=== PATIENT | male | born 1980 | race Caucasian/White ===

== ENCOUNTER → 2017-05-12 15:31 | Outpatient (CLI) | payer BC, SELFPAY ==
[2017-05-12 17:48] LABS: Basophils % 0.5 % (0.1-2.0); Eosinophils # 0.3 K/mm3 (0.0-0.4); Eosinophils % 3.3 % (0.1-12.0); Hematocrit 46.7 % (42.0-52.0); Hemoglobin 16.2 g/dL (14.1-18.0); Lymphocytes # 1.4 K/mm3 (0.7-4.5); Lymphocytes % 17.9 K/mm3 (10-50); Mean Corpuscular HGB Conc 34.7 g/dL (31.8-35.4); Mean Corpuscular Hemoglobin 30.1 pg (27.0-31.2); Mean Corpuscular Volume 86.6 fl (80-94); Mean Platelet Volume 8.4 fl (7.4-10.4); Monocytes # 0.6 K/mm3 (0.1-1.0); Monocytes % 7.7 % (1.7-9.3); Neutrophils # 5.4 K/mm3 (1.8-7.8); Neutrophils % 70.5 % (37.0-80.0); Platelet Count 283 K/mm3 (142-424); Red Blood Count 5.39 M/mm3 (4.60-6.20); White Blood Count 7.7 K/mm3 (4.8-10.8)
[2017-05-12 18:18] LABS: Hemoglobin A1C 5.2 % (0.0-7.0)
[2017-05-12 18:46] LABS: Alanine Aminotransferase 78 U/L (12-78); Albumin Level 4.1 gm/dL (3.4-5.0); Albumin/Globulin Ratio 1.2 (1.1-1.8); Alkaline Phosphatase 98 U/L (46-116); Anion Gap 14.1 mEq/L (5-15); Bilirubin,Total 0.5 mg/dL (0.2-1.0); Blood Urea Nitrogen 17 mg/dL (7-18); Calcium 9.6 mg/dL (8.5-10.1); Carbon Dioxide 26 mmol/L (21.0-32.0); Chloride 102 mmol/L (98-107); Chol/HDL Ratio 5.5 (1-3.5); Cholesterol 277 mg/dL (140-200); Creatinine,Serum 1.03 mg/dL (0.70-1.30); Estimated Glomerular Filt Rate 81 ml/min (>60); Free T4 (Free Thyroxine) 0.84 ng/dl (0.76-1.46); GFR (African American) 98 ML/MIN (>60); Globulin 3.5 gm/dl (1.3-3.2); Glucose 101 mg/dL (74-106); HDL Cholesterol 50 mg/dL (27-67); Sodium 138 mmol/L (136-145); Thyroid Stimulating Hormone 2.75 uIU/ml (0.358-3.740); Total Protein,Serum 7.6 gm/dL (6.4-8.2)
[2017-05-12 18:51] LABS: Potassium 4.1 mmoL/L (3.5-5.1); Triglycerides 584 mg/dL (30-200)
[2017-05-12 18:52] LABS: Aspartate Amino Transferase 31 U/L (15-37)
== END ==
PROVIDERS: Visit Provider Nurse Practitioner Family
DX: R53.83 Other fatigue (principal)
CPT/HCPCS: 80053; 80061; 82652; 83036; 84439; 84443; 85025

== ENCOUNTER 2020-03-18 11:06 | Emergency (ER) | payer BC, SELFPAY ==
[2020-03-18 11:10] VITALS: BP 128/94; PULSE 85; RESP 19; TEMP 36.9; O2SAT 98; BMI 38.5
--- NOTE | 2020-03-18 11:30 | HMH.EDUTC ---
[facility] Disposition Clinical Impression: Strep throat Disposition: Home, Self-Care Condition on Discharge: Good Instructions: DI for Strep Throat, Strep Throat, Strep Throat (Alternative Therapy), DI for Sinusitis, Acute Bronchitis Additional Instructions: *Monitor Temp, Over the counter Motrin or Tylenol as directed/as needed Tylenol every 4 hours and Motrin every 6 hours (as long as your family doctor has told you that you can take it) for fever or pain. and straight to ER if unable to lower temp less than 101.0 after medication given *Warm salt water gargles may help to soothe the throat *Throat Lozenges *Warm fluids like tea with honey may help to soothe the throat *Sleep elevated *Humidifier/Vaporizer *If you did not take Penicillin shot or was unable to, start taking antibiotic immediately and make sure that you take it for the FULL length of time although you should start to feel better in 24-48 hours *change toothbrush and toothpaste 24-48 hours after starting to take antibiotics so you do not reinfect yourself Monitor Temp. Tylenol and/or Ibuprofen as needed. ER if fever is no less than 101 despite alternating Tylenol and Ibuprofen * Encourage fluids, water, Gatorade, powerade, pedialyte if infant/toddler/or child *Cold fluids, popsicles and ice cream may feel good on his throat Follow up IMMEDIATELY for new or worsening symptoms or no Noticeable improvement over the next 48-72 hours. 911 for difficulty breathing or swallowing You were tested for today for COVID19 your test result should be back in the next 24-48 hours, you may call to the [facility] to see if your test results are back in the next 48 hours [phone] [facility] hours are 9am-9pm You was given a handout with instructions for Self Quarantine and Self isolation for while you wait on test results and what to do if they are positive If you are positive the Health Dept will be contacting you also Prescriptions: methylPREDNISolone [Medrol 4mg tab] 4 mg PO DIRECTED #21 tab Transmission Status: Pending to [facility] Cefdinir [Omnicef 300mg Capsule] 300 mg PO BID #20 cap Transmission Status: P[facility] to [facility] Referrals: Tom Alvarez MD [Primary Care Provider] - As needed Forms: Work/School Release Time of Disposition: 11:41 Medical Decision Making - James Inquiry Pt receiving controlled substance: No James was queried for this patient: No Vital Signs: 03/18/20 11:10 Temperature 98.4 F Temperature Source Oral Pulse Rate [Right Brachial] 85 Respiratory Rate 19 Blood Pressure [Right Arm] 128/94 H Blood Pressure Mean [Right Arm] 105 Blood Pressure Source [Right Arm] Automatic Cuff Blood Pressure Position [Right Arm] Sitting 02 Sat by Pulse Oximetry 98 Oxygen Delivery Method Room Air Orders (Tests/Meds): ORDERS Category Date Time Status Covid-19 Nasal PCR ([facility]) Routine Lab 03/18/20 11:10 Ordered [facility] UTC HPI - General Stated complaint: sore throat,upper resp,headache,cough Time Seen by Provider: 03/18/20 11:31 Mode of Arrival: Ambulatory Source of Information: Patient Limitations: No Limitations Description of Symptoms (Recalled from Triage Doc. by RN): PATIENT C/O UPPER RESPIRATORY/SINUS SYMPTOMS HEENT Symptoms (Recalled from RN notes): Yes Resp Symptoms (Recalled from RN notes): No Skin Symptoms (Recalled from RN notes): No MS Symptoms (Recalled from RN notes): No Functional Status (Recalled from RN notes): WNL - History of Present Illness Provider Complaint: Patient state that he has been having sore throat, body aches, headache, sinus pain and pressure along with cough States that he use to get sinusitis and bronchitis alot and they would give him medication and it helped States that he feels like that is what he has now also but work wouldnt let him return until he got COVID tested - Related Data Previous Rx's Medication Instructions Recorded Atorvastatin Calcium [Atorvastatin 40 mg PO HS #3
[2020-03-18 11:40] LABS: UTC Strep Screen (Rapid) Positive (Negative)
[2020-03-18 11:41] VITALS: BP 128/94; PULSE 85; RESP 19; TEMP 36.9; O2SAT 98
== END 2020-03-18 11:45 | disposition home or self-care (01) ==
PROVIDERS: Emergency Provider Nurse Practitioner; PCP Emergency Medicine
DX: J02.0 Streptococcal pharyngitis (principal)
CPT/HCPCS: 87880; 99202; G0463; U0003

== ENCOUNTER 2020-10-13 01:46 | Emergency (ER) | payer BC, SELFPAY ==
[2020-10-13 01:47] VITALS: BP 132/94; PULSE 114; RESP 16; TEMP 37.6; O2SAT 95; BMI 39.1
--- NOTE | 2020-10-13 01:56 | XR_ITS ---
PROCEDURE INFORMATION: Exam: XR Chest Exam date and time: 10/13/2020 1:56 AM Age: 40 years old Clinical indication: Chest pressure; Patient HX: Chest pain SOB; Additional info: SOA TECHNIQUE: Imaging protocol: XR of the chest. Views: 2 views. COMPARISON: CR XR CHEST 2V 02/25/2019 4:50 AM FINDINGS: Lungs: No focal consolidation. Pleural spaces: No pleural effusion. No pneumothorax. Heart/Mediastinum: Unremarkable cardiomediastinal silhouette. Bones/joints: No acute osseous findings. IMPRESSION: No focal consolidation.
--- NOTE | 2020-10-13 01:57 | ECG_ITS ---
APPROVED REPORT Exam: Resting ECG HR:115 bpm ECG Measurements Heart Rate 115 AXES ND 176 P 43 QRSd 74 QRS 6 QT 310 T 29 QTc 428 Conclusion Sinus tachycardia Possible Left atrial enlargement Cannot rule out Inferior infarct, age undetermined Abnormal ECG Electronically signed by : Sherif Linares MD 10/14/2020 12:09:10
[2020-10-13 02:01] VITALS: BP 141/89; PULSE 112; RESP 24; O2SAT 90
--- NOTE | 2020-10-13 02:03 | HMH.EDCP ---
ED Disposition Clinical Impression: Pleurisy, SIRS (systemic inflammatory response syndrome) Disposition: Home, Self-Care Condition on Discharge: Good Instructions: DI for Atypical Chest Pain, DI for Pleurisy Additional Instructions: use meds and see pcp and recheck ed if increased sx Prescriptions: predniSONE [Prednisone 20mg Tab] 20 mg PO BID #10 tab Transmission Status: [facility] to [facility] Azithromycin [Zithromax 250mg tab] 250 mg PO DIRECTED #6 tab Transmission Status: Pending to [facility] Referrals: Cait Shukal [Primary Care Provider] - - Critical Care Critical Care Time: No Attestation: On , the high probability of a clinically significant, sudden or life threatening deterioration of the following system(s) required my full and direct attention, intervention and personal management. The time I documented below is in addition to time spent performing reported procedures but includes the following listed in this critical care notation. Medical Decision Making - Medical Records Medical records reviewed: Yes: I reviewed the patient's medical records. - James Inquiry Pt receiving controlled substance: No Vital Signs: 10/13/20 01:47 10/13/20 02:01 10/13/20 02:30 Temperature 99.6 F Temperature Source Oral Pulse Rate 112 H 113 H Pulse Rate [Left Radial] 114 H Respiratory Rate 16 24 27 H Blood Pressure 141/89 H 135/84 Blood Pressure [Right Arm] 132/94 H Blood Pressure Mean [Right Arm] 106 Blood Pressure Source [Right Arm] Automatic Cuff Blood Pressure Position [Right Arm] Supine 02 Sat by Pulse Oximetry 95 90 L 93 L Oxygen Delivery Method Room Air Room Air Room Air - Lab Data Lab results reviewed: Yes: I reviewed the patient's lab results. Lab Results 10/13/20 01:48: WBC 16.7 H, RBC 5.43, Hgb 16.1, Hct 46.9, MCV 86.5, MCH 29.6, MCHC 34.3, RDW 13.2, Plt Count 362, MPV 8.7, Neut % (Auto) 85.5 H, Lymph % (Auto) 8.9 L, [place] % (Auto) 4.8, Eos % (Auto) 0.5, Baso % (Auto) 0.4, Neut # (Auto) 14.3 H, Lymph # (Auto) 1.5, [place] # (Auto) 0.8, Eos # (Auto) 0.1, Baso # (Auto) 0.1, Total Counted 100, Neutrophils % (Manual) 83 H, Band Neutrophils % 10.0 H, Lymphocytes % (Manual) 5 L, Monocytes % (Manual) 2, Platelet Estimate Normal, RBC Morphology Normal, ESR 14 10/13/20 01:48: Sodium 135 L, Potassium 4.3, Chloride 101, Carbon Dioxide 22, Anion Gap 16.3 H, BUN 15, Creatinine 0.90, Estimated Creat Clear 209, Estimated GFR 93, Est GFR ( Amer) 112, Glucose 159 H, Calcium 9.5, Total Bilirubin 0.9, Direct Bilirubin 0.5 H, Conjugated Bilirubin 0.0, Indirect Bilirubin 0.4, Unconjugated Bilirubin 0.4, AST 37, ALT 50, Alkaline Phosphatase 111, Troponin I < 0.01, C-Reactive Protein 14.5 H, Total Protein 8.0, Albumin 4.6, Procalcitonin 0.087, Thyroxine (T4) 8.1 10/13/20 01:48: SARS-CoV-2 (PCR) Not detected, Influenza A Untype (PCR) Not detected, Influenza Type B (PCR) Not detected Result diagrams: 10/13/20 01:48 10/13/20 01:48 Orders (Tests/Meds): ED MEDICATIONS Generic Name Dose Route Start Last Admin Trade Name Freq PRN Reason Stop Dose Admin Sodium Chloride 1,000 mls @ 999 mls/hr 10/13/20 02:00 10/13/20 02:53 Sod Chlor 0.9% 1000ml Bag IV 10/13/20 03:00 Not Given .Q1H1M DELICIA Lactated Ringer's 1,000 mls @ 999 mls/hr 10/13/20 02:00 10/13/20 01:59 Lactated Ringer's 1000 Ml Bag IV 10/13/20 03:00 999 mls/hr .Q1H1M DELICIA Administration Discontinued Medications Generic Name Dose Route Start Last Admin Trade Name Freq PRN Reason Stop Dose Admin Aspirin 324 mg 10/13/20 01:56 10/13/20 01:57 Aspirin 81mg Chewable Tablet PO 10/13/20 01:57 324 mg ONCE ONE Administration Ketorolac Tromethamine 30 mg 10/13/20 02:03 10/13/20 02:04 Ketorolac 30mg/Ml Vial IV 10/13/20 02:04 30 mg ONCE ONE Administration Methylprednisolone Sodium Succinate 125 mg 10/13/20 02:48 10/13/20 03:07 Methylprednisolone Sod Succ 125mg Vial IV 09/16
[2020-10-13 02:08] LABS: Coronavirus 19, PCR Not Detected (NotDetected); Influenza A, PCR Not Detected (NotDetected); Influenza B, PCR Not Detected (NotDetected)
[2020-10-13 02:13] LABS: Basophils # 0.1 K/mm3 (0-0.2); Basophils % 0.4 % (0.1-2.0); Eosinophils # 0.1 K/mm3 (0.0-0.4); Eosinophils % 0.5 % (0.1-12.0); Hematocrit 46.9 % (42.0-52.0); Hemoglobin 16.1 g/dL (14.1-18.0); Lymphocytes # 1.5 K/mm3 (0.7-4.5); Lymphocytes % 8.9 % (10-50); Mean Corpuscular HGB Conc 34.3 g/dL (31.8-35.4); Mean Corpuscular Hemoglobin 29.6 pg (27.0-31.2); Mean Corpuscular Volume 86.5 fl (80-94); Mean Platelet Volume 8.7 fl (7.4-10.4); Monocytes # 0.8 K/mm3 (0.1-1.0); Monocytes % 4.8 % (1.7-9.3); Neutrophils # 14.3 K/mm3 (1.8-7.8); Neutrophils % 85.5 % (37.0-80.0); Platelet Count 362 K/mm3 (142-424); Red Blood Count 5.43 M/mm3 (4.60-6.20); Red Cell Distribution Width 13.2 % (11.5-17.5); White Blood Count 16.7 K/mm3 (4.8-10.8)
[2020-10-13 02:18] LABS: MANUAL DIFFERENTIAL MANUAL DIFFERENTIAL (MANUAL DIFF)
[2020-10-13 02:27] LABS: Alanine Aminotransferase 50 U/L (12-78); Albumin Level 4.6 g/dl (3.5-5.0); Alkaline Phosphatase 111 U/L (38-126); Anion Gap 16.3 mEq/L (5-15); Aspartate Amino Transferase 37 U/L (17-59); Bilirubin,Direct 0.5 mg/dl (0.0-0.4); Bilirubin,Indirect 0.4 mg/dL (0.0-0.9); Bilirubin,Total 0.9 mg/dl (0.2-1.3); Bilirubin,Unconjugated 0.4 mg/dL (0.0-1.1); Blood Urea Nitrogen 15 mg/dl (9-20); Calcium 9.5 mg/dl (8.4-10.2); Carbon Dioxide 22 mmol/L (22.0-30.0); Chloride 101 mmol/L (98-107); Creatinine Clearance Estimated 209 mL/min (50-200); Estimated Glomerular Filt Rate 93 ml/min (>60); GFR (African American) 112 ML/MIN (>60); Glucose 159 mg/dl (74-100); Lymphocytes % 5 % (10-50); Monocytes % 2 % (2-9); Neutrophils % 83 % (42-76); Platelet Estimate Normal; Potassium 4.3 mmoL/L (3.5-5.1); RBC Morphology Normal; Sodium 135 mmol/L (136-145); Total Cells Counted 100
[2020-10-13 02:30] VITALS: BP 135/84; PULSE 113; RESP 27; O2SAT 93
[2020-10-13 02:33] LABS: C-Reactive Protein 14.5 mg/L (0-4)
[2020-10-13 02:39] LABS: Erythrocyte Sedimentation Rate 14 mm/hr (0-15)
[2020-10-13 02:45] LABS: Troponin I < 0.01 ng/ml (0.00-0.034)
[2020-10-13 02:48] LABS: Procalcitonin 0.087 ng/mL (0.0-2.0); T4 (Thyroxine) 8.1 ug/dl (5.53-11.0)
[2020-10-13 03:00] VITALS: BP 141/92; PULSE 109; RESP 21; O2SAT 93
[2020-10-13 03:02] LABS: Thyroid Stimulating Hormone 1.19 uIU/mL (0.465-4.68)
[2020-10-13 03:30] VITALS: BP 124/65; PULSE 108; RESP 20; O2SAT 94
[2020-10-13 03:32] VITALS: BP 124/65; PULSE 107; RESP 19; TEMP 37.2; O2SAT 95
== END 2020-10-13 03:39 | disposition home or self-care (01) ==
PROVIDERS: Emergency Provider Emergency Medicine; PCP Family Medicine
DX: R09.1 Pleurisy (principal); Z20.822 Contact with and (suspected) exposure to COVID-19; R65.10 Systemic inflammatory response syndrome (SIRS) of non-infectious origin without acute organ dysfunction
CPT/HCPCS: 71046; 80048; 80076; 84145; 84436; 84443; 84484; 85007; 85025; 85651; 86140; 93005; 96365; 96375; 99283; U0003

== ENCOUNTER 2020-10-24 13:45 | Inpatient (IN) | payer BC, SELFPAY ==
[2020-10-24] VITALS (13 sets, daily range): BP systolic 107–188; BP diastolic 63–98; PULSE 110–127; RESP 16–27; TEMP 37.3–38.3; O2SAT 87–93; BMI 39.1; BMI 38.9
--- NOTE | 2020-10-24 14:10 | XR_ITS ---
PROCEDURE: XR CHEST PORTABLE CLINICAL HISTORY: SOA, covid +, cough, fever COMPARISON: CR CXR2 CHEST-AP VIEW ONLY from 01/21/2013 CR XR CHEST 2V from 02/25/2019 CR XR CHEST 2V from 10/13/2020 FINDINGS: There is mild cardiomegaly without failure. Multifocal bilateral infiltrates are present with some sparing of the apices consistent with Covid19 pneumonia. No effusions. No evidence of pneumothorax. No acute bony abnormalities. IMPRESSION: Moderate to severe bilateral multi focal infiltrates consistent with Covid19 pneumonia Dictated by: Jose Alberto Moran MD 10/24/2020 14:36 Jose Alberto Moran MD in [place] 10/24/2020 14:36
--- NOTE | 2020-10-24 14:11 | HMH.EDGENADL ---
ED Disposition Clinical Impression: Pneumonia due to COVID-19 virus, Pericardial effusion Respiratory failure with hypoxia Qualifiers: Chronicity: acute Qualified Code(s): J96.01 - Acute respiratory failure with hypoxia Disposition: Admitted As Inpatient Condition on Discharge: Serious Referrals: Cait Shukla [Primary Care Provider] - - Critical Care Critical Care Time: No Attestation: On , the high probability of a clinically significant, sudden or life threatening deterioration of the following system(s) required my full and direct attention, intervention and personal management. The time I documented below is in addition to time spent performing reported procedures but includes the following listed in this critical care notation. Medical Decision Making - James Inquiry Pt receiving controlled substance: No Vital Signs: 10/24/20 13:46 10/24/20 14:30 10/24/20 15:01 Temperature 101.0 F H Temperature Source Oral Pulse Rate 124 H 121 H Pulse Rate [Right Radial] 127 H Respiratory Rate 24 Blood Pressure 107/71 L 129/78 Blood Pressure [Right Arm] 131/83 Blood Pressure Mean [Right Arm] 99 Blood Pressure Source [Right Arm] Automatic Cuff Blood Pressure Position [Right Arm] Sitting 02 Sat by Pulse Oximetry 87 L 89 L 93 L Oxygen Delivery Method Room Air Room Air Nasal Cannula Oxygen Flow Rate (LPM) 2 10/24/20 15:30 10/24/20 16:00 Temperature Temperature Source Pulse Rate 121 H 118 H Pulse Rate [Right Radial] Respiratory Rate 20 Blood Pressure 115/63 111/76 Blood Pressure [Right Arm] Blood Pressure Mean [Right Arm] Blood Pressure Source [Right Arm] Blood Pressure Position [Right Arm] 02 Sat by Pulse Oximetry 90 L 88 L Oxygen Delivery Method Nasal Cannula Nasal Cannula Oxygen Flow Rate (LPM) 2 2 - Lab Data Lab Results 10/24/20 14:18: WBC 7.8, RBC 4.28 L, Hgb 12.5 L, Hct 37.8 L, MCV 88.4, MCH 29.1, MCHC 32.9, RDW 13.8, Plt Count 289, MPV 8.2, Neut % (Auto) 93.1 H, Lymph % (Auto) 5.0 L, [place] % (Auto) 1.6 L, Eos % (Auto) 0.1, Baso % (Auto) 0.3, Neut # (Auto) 7.2, Lymph # (Auto) 0.4 L, [place] # (Auto) 0.1, Eos # (Auto) 0.0, Baso # (Auto) 0.0, Total Counted 100, Neutrophils % (Manual) 89 H, Lymphocytes % (Manual) 8 L, Monocytes % (Manual) 3, Platelet Estimate Normal, RBC Morphology Normal 10/24/20 14:18: Sodium 136, Potassium 3.5, Chloride 100, Carbon Dioxide 27, Anion Gap 12.5, BUN 10, Creatinine 0.80, Estimated Creat Clear 234, Estimated GFR 106, Est GFR ( Amer) 128, Glucose 116 H, Calcium 8.1 L, Total Bilirubin 0.7, AST 60 H, ALT 76, Alkaline Phosphatase 114, Total Protein 6.4, Albumin 3.3 L, Globulin 3.1, Albumin/Globulin Ratio 1.1 10/24/20 14:18: Lactate 0.9 10/24/20 14:18: Troponin I 0.02 10/24/20 15:10: SARS-CoV-2 (PCR) Detected A, Influenza A Untype (PCR) Not detected, Influenza Type B (PCR) Not detected Result diagrams: 10/24/20 14:18 10/24/20 14:18 Orders (Tests/Meds): ED MEDICATIONS Generic Name Dose Route Start Last Admin Trade Name Freq PRN Reason Stop Dose Admin Sodium Chloride 1,000 mls @ 100 mls/hr 10/24/20 15:15 10/24/20 15:08 Sod Chlor 0.9% 1000ml Bag IV 11/23/20 15:14 100 mls/hr .Q10H DELICIA Administration Ceftriaxone Sodium 1 gm/ 50 mls @ 100 mls/hr 10/24/20 15:30 10/24/20 15:27 Sodium Chloride IV 11/07/20 15:29 100 mls/hr Q24H DELICIA Administration Azithromycin 500 mg/ Sodium 250 mls @ 250 mls/hr 10/24/20 15:30 Chloride IV 11/07/20 15:29 Q24H DELICIA Discontinued Medications Generic Name Dose Route Start Last Admin Trade Name Freq PRN Reason Stop Dose Admin Acetaminophen 1,000 mg 10/24/20 15:03 10/24/20 15:08 Acetaminophen 500mg Tab PO 10/24/20 15:04 1,000 mg ONCE ONE Administration Ibuprofen 600 mg 10/24/20 15:04 10/24/20 15:08 Ibuprofen 600 Mg Tablet PO 10/24/20 15:05 600 mg ONCE ONE Administration Iopamidol 70 ml 10/24/20 14:58 10/24/20 15:02 Iopamidol-370 (76%);100ml Bottle
--- NOTE | 2020-10-24 14:15 | CT_ITS ---
PROCEDURE: CT ANGIO CHEST PE PROTOCOL 0 CLINCIAL INDICATION: hypoxia, covid 19 COMPARISON: CR XR CHEST PORTABLE from 10/24/2020 TECHNIQUE: IV Contrast: 70ML Isovue 370 Axial images obtained with sagittal and coronal reformats. All CT scans at the facility use one or more dose reduction, viz: automated exposure control, ma/kV adjustment per patient size (including targeted exams where dose is matched to indication, i.e. head), or iterative reconstruction technique. FINDINGS: HEART AND MEDIASTINAL STRUCTURES: There is a moderate to large size pericardial effusion with pericardial space measuring up to 3 cm in thickness. Pulmonary arterial opacification is somewhat limited despite repeating the exam. No definite pulmonary embolus apparent. The small pulmonary emboli may not be seen. There are few small mediastinal lymph nodes. LUNGS AND PLEURAL SPACES: Multi segmental areas of ground-glass opacities and scattered areas of consolidation are noted consistent with Covid19 pneumonia. There are small bilateral pleural effusions. No areas of cavitation. BONY STRUCTURES: No acute bony abnormalities apparent. UPPER ABDOMEN: Splenomegaly at 18 cm. ADDITIONAL FINDINGS: No other significant abnormalities. IMPRESSION: 1. No definite evidence of pulmonary embolus. 2. Moderate to large size pericardial effusion 3. Multifocal bilateral pneumonia consistent with Covid19 pneumonia with small bilateral effusions 4. Splenomegaly Dictated by: Jose Alberto Moran MD 10/24/2020 15:16 Jose Alberto Moran MD in [place] 10/24/2020 15:16
--- NOTE | 2020-10-24 14:18 | PC.NURSE ---
Rad at bedside
--- NOTE | 2020-10-24 14:42 | PC.NURSE ---
pt in CT
[2020-10-24 14:54] LABS: Chloride 100 mmol/L (98-107); Potassium 3.5 mmoL/L (3.5-5.1); Sodium 136 mmol/L (136-145)
[2020-10-24 14:56] LABS: Blood Urea Nitrogen 10 mg/dl (9-20); Creatinine Clearance Estimated 234 mL/min (50-200); Estimated Glomerular Filt Rate 106 ml/min (>60); GFR (African American) 128 ML/MIN (>60)
[2020-10-24 14:57] LABS: Alanine Aminotransferase 76 U/L (12-78); Albumin Level 3.3 g/dl (3.5-5.0); Albumin/Globulin Ratio 1.1 (1.1-1.8); Alkaline Phosphatase 114 U/L (38-126); Anion Gap 12.5 mEq/L (5-15); Aspartate Amino Transferase 60 U/L (17-59); Bilirubin,Total 0.7 mg/dl (0.2-1.3); Calcium 8.1 mg/dl (8.4-10.2); Carbon Dioxide 27 mmol/L (22.0-30.0); Globulin 3.1 g/dL (1.3-3.2); Glucose 116 mg/dl (74-100); Lactic Acid 0.9 mmol/L (0.7-2.1); Total Protein,Serum 6.4 g/dl (6.3-8.2)
--- NOTE | 2020-10-24 14:57 | PC.NURSE ---
Pt returned from rad
[2020-10-24 15:03] LABS: Basophils % 0.3 % (0.1-2.0); Eosinophils % 0.1 % (0.1-12.0); Hematocrit 37.8 % (42.0-52.0); Hemoglobin 12.5 g/dL (14.1-18.0); Lymphocytes # 0.4 K/mm3 (0.7-4.5); Mean Corpuscular HGB Conc 32.9 g/dL (31.8-35.4); Mean Corpuscular Hemoglobin 29.1 pg (27.0-31.2); Mean Corpuscular Volume 88.4 fl (80-94); Mean Platelet Volume 8.2 fl (7.4-10.4); Monocytes # 0.1 K/mm3 (0.1-1.0); Monocytes % 1.6 % (1.7-9.3); Neutrophils # 7.2 K/mm3 (1.8-7.8); Neutrophils % 93.1 % (37.0-80.0); Platelet Count 289 K/mm3 (142-424); Red Blood Count 4.28 M/mm3 (4.60-6.20); Red Cell Distribution Width 13.8 % (11.5-17.5); White Blood Count 7.8 K/mm3 (4.8-10.8)
[2020-10-24 15:13] LABS: MANUAL DIFFERENTIAL MANUAL DIFFERENTIAL (MANUAL DIFF)
[2020-10-24 15:21] LABS: Influenza A, PCR Not Detected (NotDetected); Influenza B, PCR Not Detected (NotDetected)
[2020-10-24 15:25] LABS: Lymphocytes % 8 % (10-50); Monocytes % 3 % (2-9); Neutrophils % 89 % (42-76); Total Cells Counted 100
[2020-10-24 15:26] LABS: Platelet Estimate Normal; RBC Morphology Normal
--- NOTE | 2020-10-24 15:34 | ECG_ITS ---
APPROVED REPORT Exam: Resting ECG HR:122 bpm ECG Measurements Heart Rate 122 AXES [place] 174 P 53 QRSd 80 QRS 27 QT 298 T 30 QTc 424 Conclusion Sinus tachycardia Low voltage QRS Cannot rule out Anterior infarct, age undetermined Abnormal ECG Electronically signed by : Sherif Linares MD 10/26/2020 16:10:22
--- NOTE | 2020-10-24 15:40 | PC.NURSE ---
increased pt O2 to 3L per NC at this time will continue to monitor
--- NOTE | 2020-10-24 15:46 | PC.NURSE ---
pt set up a password of [phone] at this time.
[2020-10-24 15:47] LABS: Coronavirus 19, PCR Detected (NotDetected)
[2020-10-24 16:04] LABS: Troponin I 0.02 ng/ml (0.00-0.034)
--- NOTE | 2020-10-24 16:12 | PC.NURSE ---
Dr Winslow speaking with Dr Rush.
--- NOTE | 2020-10-24 16:16 | PC.NURSE ---
YUNG TODD just spoke with DR. Rush rope coiling machine operator paging service MD collection systems administrator
--- NOTE | 2020-10-24 16:17 | PC.NURSE ---
Pt rang out requesting tissues. Provided him some and pt has requested to sit on the side of the bed.
--- NOTE | 2020-10-24 16:22 | PC.NURSE ---
ER spoke with Dr. Dow who is train reservation clerk for service pts, agreeable for admission
--- NOTE | 2020-10-24 16:24 | PC.NURSE ---
notified nanny/household manager of admission
--- NOTE | 2020-10-24 16:25 | PC.NURSE ---
bed assignment requested, room 201, all staff notified
--- NOTE | 2020-10-24 16:25 | PC.NURSE ---
notified ER MD of pt SaO2 86% on 3L per NC, ER MD states to increase O2 to 5L O2 Increased to 5L per NC at this time, will continue to monitor
--- NOTE | 2020-10-24 16:27 | PC.NURSE ---
notified RT of VBG order
[2020-10-24 16:40] LABS: VBG Base Excess 0.2 mmol/L (-2.4-2.3); VBG HCO3 25.1 mmol/L (23-30); VBG Oxygen Saturation 68.8 % (50-70); VBG PCO2 41.9 mmol/L (35-51); VBG PO2 37.6 mmol/L (28-40); VBG Total CO2 26.4 mmol/L (23-27)
--- NOTE | 2020-10-24 16:50 | PC.NURSE ---
pt sitting up on side of bed SaO2 90% on 5L NC ordered supper tray for pt will continue to monitor
--- NOTE | 2020-10-24 17:27 | PC.NURSE ---
report called to tristinrn on second floor at this time
[2020-10-24 19:47] LABS: Troponin I 0.02 ng/ml (0.00-0.034)
--- NOTE | 2020-10-24 19:54 | HMH.HP ---
*Admission Date: 10/24/20 *Chief complaint: Shortness of breath,COVID-19 pneumonia *History of present illness: Patient is a 40-year-old white male, service patient, who was admitted through the urgency room for progressive dyspnea. Patient became symptomatic 1 week ago, and had a positive rapid test at that point. Was on a course of a azithromycin and prednisone which he finished, and due to the progression of his symptoms he received an infusion of monoclonal antibodies in [place] earlier today. Patient's clinical features progressed to a point where he sought medical attention here. His work-up emergency room included a chest x-ray which shows a fairly extensive patchy scattered pneumonia. He also underwent a CTA of the chest, this showed no pulmonary embolism but did demonstrate a moderate pericardial effusion. Patient has no cardiac history. His EKG showed sinus tachycardia without diffuse ST changes. Low voltage QRS. Troponins have been negative x2. Patient does have underlying hypertension. Patient is otherwise fairly healthy. He is status post gallbladder surgery, that is post sinus surgery. He is employed, has children at home. His has been vaccinated. [facility] History Medical History: Reports:: Hyperlipidemia, Hypertension Denies:: Cancer, Diabetes Mellitus Type 1, Diabetes Mellitus Type 2, MRSA *Have you ever received a pneumonia vaccine?: No *Have you received a flu vaccine this season?: No Other Surgeries: Yes: Cholecystectomy, Other Amputation: No Fractures: No - *Social History Smoking Status: Never smoker Alcohol Intake: current Alcohol Intake Frequency:: holidays/special occasions only Substance Use Type: denies use *Occupational Status:: employed Housing: house Household Members: children, spouse *Travel in the last 8 weeks: None Family Hx:: Heart Attack Review of Systems - Constitutional Reports body ache(s), Reports fever(s), Reports lack of energy, Reports malaise - Eyes Denies change in vision - ENT Reports headache(s), Reports nasal congestion, Denies abnormal hearing - *Cardiovascular Reports shortness of breath, Reports shortness of breath with activity, Reports leg swelling - *Respiratory Reports chest congestion, Reports cough, Reports shortness of breath - *Gastrointestinal Denies abdominal pain - *Genitourinary Denies difficulty urinating - *Musculoskeletal Reports limited joint movement, Reports muscle weakness, Reports body aches - Integumentary/Breasts Denies yellowing of the skin - *Neurologic Reports headache(s), Reports weakness, Denies abnormal speech, Denies behavioral changes - Psychiatric Reports anxiety, Denies behavioral changes - Endocrine Reports rapid, pounding, or irregular heartbeat - Hematologic/Lymphatic Denies easy bleeding, Denies easy bruising - Allergic/Immunologic Denies itchy eyes Meds Home Medications Medication Instructions Recorded Confirmed Type Amlodipine Besylate [Amlodipine 10 mg PO DAILY 10/24/20 10/24/20 History 10mg Tab] Allergies Allergy/AdvReac Type Severity Reaction Status Date / Time NO KNOWN ALLERGIES Allergy Uncoded 02/01/17 14:35 Exam Vital signs and Labs for Last 24 Hours: Temp Pulse Resp BP Pulse Ox 99.1 F 112 H 16 131/79 90 L 10/24/20 18:00 10/24/20 18:00 10/24/20 18:00 10/24/20 18:00 10/24/20 18:00 Laboratory Results - last 24 hr 10/24/20 14:18: WBC 7.8, RBC 4.28 L, Hgb 12.5 L, Hct 37.8 L, MCV 88.4, MCH 29.1, MCHC 32.9, RDW 13.8, Plt Count 289, MPV 8.2, Neut % (Auto) 93.1 H, Lymph % (Auto) 5.0 L, [place] % (Auto) 1.6 L, Eos % (Auto) 0.1, Baso % (Auto) 0.3, Neut # (Auto) 7.2, Lymph # (Auto) 0.4 L, [place] # (Auto) 0.1, Eos # (Auto) 0.0, Baso # (Auto) 0.0, Total Counted 100, Neutrophils % (Manual) 89 H, Lymphocytes % (Manual) 8 L, Monocytes % (Manual) 3, Platelet Estimate Normal, RBC Morphology Normal 10/24/20 14:18: Sodium 136, Potassium 3.5, Chloride 100, Carbon Dioxide 27, Anion Gap 1
[2020-10-24 23:00] LABS: Troponin I 0.02 ng/ml (0.00-0.034)
[2020-10-25] VITALS (8 sets, daily range): BP systolic 126–157; BP diastolic 72–99; PULSE 89–120; RESP 18–24; TEMP 36.7–37.2; O2SAT 88–94; BMI 38.5
--- NOTE | 2020-10-25 04:22 | PC.NURSE ---
Patient had increased heart rate when O2 decreases below 90. Encouraged to focus on breathing pattern and to breath through nose and not mouth. Tried to use Venti mask to help with mouth breathing patient unable to tolerate. No acute distress noted this shift, call light within reach, bed at lowest level for safety; will continue to monitor.
--- NOTE | 2020-10-25 06:00 | XR_ITS ---
PROCEDURE INFORMATION: Exam: XR Chest Exam date and time: 10/25/2020 6:00 AM Age: 40 years old Clinical indication: Condition or disease; Other: Covid pneumonia SOB TECHNIQUE: Imaging protocol: XR of the chest. Views: 1 view. COMPARISON: CR XR CHEST PORTABLE 10/24/2020 2:22 PM FINDINGS: Extensive bilateral airspace opacities are not substantially changed. No pleural effusion or pneumothorax. Cardiac silhouette appears mildly enlarged, similar to prior. IMPRESSION: No significant change in extensive bilateral airspace disease.
--- NOTE | 2020-10-25 07:01 | ECG_ITS ---
APPROVED REPORT Exam: Resting ECG HR:103 bpm ECG Measurements Heart Rate 103 AXES [place] 190 P 37 QRSd 82 QRS 11 QT 362 T 37 QTc 474 Conclusion Sinus tachycardia Possible Left atrial enlargement Low voltage QRS Cannot rule out Anterior infarct, age undetermined Abnormal ECG Electronically signed by : Sherif Linares MD 10/26/2020 16:04:03
--- NOTE | 2020-10-25 09:59 | HMH.ACPN2 ---
Internal Medicine - PN: Subj *Date: 10/25/20 *Time: 10:00 Interval history: Patient relays an uneventful night. He feels a bit better this morning. Is having no chest pain. He is saturating 92% on 6 L. Chest film this morning showed extensive infiltrative changes, unchanged from yesterday. He still has some crackles at his left base but is in no distress. Is able to speak in complete sentences and not engaging accessory muscles. Patient has bilateral edema in the lower extremities, possibly a result of calcium channel aydin amlodipine which he takes for hypertension. Exam Vital signs and Labs for Last 24 Hours: Temp Pulse Resp BP Pulse Ox 98.9 F 107 H 18 148/90 H 92 L 10/25/20 07:58 10/25/20 07:58 10/25/20 07:58 10/25/20 07:58 10/25/20 07:58 Laboratory Results - last 24 hr 10/24/20 14:18: WBC 7.8, RBC 4.28 L, Hgb 12.5 L, Hct 37.8 L, MCV 88.4, MCH 29.1, MCHC 32.9, RDW 13.8, Plt Count 289, MPV 8.2, Neut % (Auto) 93.1 H, Lymph % (Auto) 5.0 L, [place] % (Auto) 1.6 L, Eos % (Auto) 0.1, Baso % (Auto) 0.3, Neut # (Auto) 7.2, Lymph # (Auto) 0.4 L, [place] # (Auto) 0.1, Eos # (Auto) 0.0, Baso # (Auto) 0.0, Total Counted 100, Neutrophils % (Manual) 89 H, Lymphocytes % (Manual) 8 L, Monocytes % (Manual) 3, Platelet Estimate Normal, RBC Morphology Normal 10/24/20 14:18: Sodium 136, Potassium 3.5, Chloride 100, Carbon Dioxide 27, Anion Gap 12.5, BUN 10, Creatinine 0.80, Estimated Creat Clear 234, Estimated GFR 106, Est GFR ( Amer) 128, Glucose 116 H, Calcium 8.1 L, Total Bilirubin 0.7, AST 60 H, ALT 76, Alkaline Phosphatase 114, Total Protein 6.4, Albumin 3.3 L, Globulin 3.1, Albumin/Globulin Ratio 1.1 10/24/20 14:18: Lactate 0.9 10/24/20 14:18: Troponin I 0.02 10/24/20 15:10: SARS-CoV-2 (PCR) Detected A, Influenza A Untype (PCR) Not detected, Influenza Type B (PCR) Not detected 10/24/20 16:27: VBG pH 7.40, VBG pCO2 41.9, VBG pO2 37.6, VBG HCO3 25.1, VBG Total CO2 26.4, VBG O2 Saturation 68.8, VBG Base Excess 0.2 10/24/20 18:45: Troponin I 0.02 10/24/20 22:28: Troponin I 0.02 I & O for Last 24 hours: Intake & Output 10/22/20 10/23/20 10/24/20 10/25/20 23:59 23:59 23:59 23:59 Intake Total 120 / 240 305 / 305 Output Total 451 / 451 Balance 120 / 240 -146 / -146 Weight 305 lb 300 lb - Constitutional no acute distress, cooperative - *Routine HEENT Exam Head: Present: normocephalic Eye: Present: EOMI, PERRL ENT: Present: mucous membranes moist - *Routine Neck Exam Present: supple. Absent: lymphadenopathy - *Routine Respiratory Exam Present: rhonchi, crackles. Absent: accessory muscle use, wheezes - *Routine Cardiovascular Exam Present: RRR - *Routine Abdominal Exam Present: soft, normoactive bowel sounds. Absent: tenderness - *Routine Extremities Exam Absent: cyanosis, clubbing, edema - *Routine Skin Exam Present: warm. Absent: rash - *Routine Neurological Exam Present: alert, oriented X3, moving all extremities, normal speech. Absent: facial asymmetry Assessment and Plan (1) Essential (primary) hypertension Status: Acute Category: Medical Code(s): I10 - Essential (primary) hypertension (2) Pericardial effusion Status: Acute Category: Medical Code(s): I31.3 - Pericardial effusion (noninflammatory) (3) Pneumonia due to COVID-19 virus Status: Acute Category: Medical Code(s): U07.1 - COVID-19; J12.82 - Pneumonia due to coronavirus disease 2019 (4) Respiratory failure with hypoxia Status: Acute Qualifiers: Chronicity: acute Qualified Code(s): J96.01 - Acute respiratory failure with hypoxia Category: Medical Code(s): J96.91 - Respiratory failure, unspecified with hypoxia (5) Chest pain Status: Acute Qualifiers: Chest pain type: unspecified Qualified Code(s): R07.9 - Chest pain, unspecified Category: Medical Code(s): R07.9 - Chest pain, unspecified (6) Essential hypertension Status: Acute Category: Medical Code(s): I10 -
[2020-10-25 10:33] LABS: Chloride 102 mmol/L (98-107); Potassium 3.8 mmoL/L (3.5-5.1); Sodium 136 mmol/L (136-145)
[2020-10-25 10:36] LABS: Alanine Aminotransferase 65 U/L (12-78); Albumin Level 3.3 g/dl (3.5-5.0); Albumin/Globulin Ratio 1.1 (1.1-1.8); Alkaline Phosphatase 111 U/L (38-126); Anion Gap 11.8 mEq/L (5-15); Aspartate Amino Transferase 62 U/L (17-59); Bilirubin,Total 0.6 mg/dl (0.2-1.3); Blood Urea Nitrogen 8 mg/dl (9-20); Calcium 7.9 mg/dl (8.4-10.2); Carbon Dioxide 26 mmol/L (22.0-30.0); Creatinine Clearance Estimated 309 mL/min (50-200); Estimated Glomerular Filt Rate 148 ml/min (>60); GFR (African American) 179 ML/MIN (>60); Glucose 147 mg/dl (74-100); Total Protein,Serum 6.3 g/dl (6.3-8.2)
--- NOTE | 2020-10-25 12:50 | P.CONPHA_ITS ---
[facility] Pharmacy VTE Monitoring - Patient Demographics Allergies/Adverse Reactions: Patient Allergies No Known Allergies Allergy (Unverified 10/25/20 08:28) Height: 1.88 m Weight: 136.078 kg Patient Problems: Current Active Problems Headache (Acute) Essential hypertension (Acute) Hyperlipidemia (Acute) Chest pain (Acute) Pneumonia due to COVID-19 virus (Acute) Respiratory failure with hypoxia (Acute) Pericardial effusion (Acute) Essential (primary) hypertension (Acute) - VTE Risk Labs: VTE Related Lab Results Hgb 12.5 g/dL (14.1-18.0) L 10/24/20 14:18 Hct 37.8 % (42.0-52.0) L 10/24/20 14:18 Plt Count 289 K/mm3 (142-424) 10/24/20 14:18 BUN 8 mg/dl (9-20) L 10/25/20 09:45 Creatinine 0.60 mg/dl (0.66-1.25) L D 10/25/20 09:45 Estimated Creat Clear 309 mL/min (50-200) H 10/25/20 09:45 Was VTE Risk Assessment Performed: Yes VTE Score: 2 Clinical Trial Participant: No - Prophylaxis VTE Prophylaxis Ordered?: Yes Types of VTE Prophylaxis: TEDS Knee High Location of Applied Device: Bilateral Lower Extremeties Pharmacologic Type: Enoxaparin
--- NOTE | 2020-10-25 12:50 | HMH.PHAINT ---
MEDICATION RECONCILIATION COMPLETE USING EXTERNAL PHARMACY FILL HISTORY.
--- NOTE | 2020-10-25 20:04 | PC.NURSE ---
Have weaned pt to 4 L NC at this time and he is resting comfortably in chair.
[2020-10-26] VITALS (13 sets, daily range): BP systolic 114–141; BP diastolic 71–102; PULSE 78–147; RESP 15–35; TEMP 36.4–39.3; O2SAT 87–97; BMI 38.6; BMI 38.7
--- NOTE | 2020-10-26 06:20 | PC.NURSE ---
Patient states was sleeping on left side and woke up SOA approx 83% on 4L NC - recovered then while respiratory was in room administering breathing treatment O2 sats decreased with difficutly bringing O2 >90 % changed over to non-rebreather 15L with increase of O2 sats to >89% Patient states feeling anxious about loosing ground which increases HR to >130 bpm; encourage to work on controlling breathing to help reduce heart rate. Patient verbalized understanding. Shows no s/s of acute distress at this time. Call light is within reach, bed at lowest level for safety; will continue to monitor.
[2020-10-26 07:25] LABS: Alanine Aminotransferase 56 U/L (12-78); Albumin Level 3.2 g/dl (3.5-5.0); Alkaline Phosphatase 94 U/L (38-126); Aspartate Amino Transferase 55 U/L (17-59); Bilirubin,Total 0.7 mg/dl (0.2-1.3); Blood Urea Nitrogen 13 mg/dl (9-20); Carbon Dioxide 29 mmol/L (22.0-30.0); Chloride 103 mmol/L (98-107); Creatinine Clearance Estimated 310 mL/min (50-200); Estimated Glomerular Filt Rate 148 ml/min (>60); GFR (African American) 179 ML/MIN (>60); Globulin 3.2 g/dL (1.3-3.2); Glucose 129 mg/dl (74-100); Sodium 139 mmol/L (136-145); Total Protein,Serum 6.4 g/dl (6.3-8.2)
--- NOTE | 2020-10-26 08:26 | ECG_ITS ---
APPROVED REPORT Exam: Resting ECG HR:125 bpm ECG Measurements Heart Rate 125 AXES QRSd 82 QRS 14 QT 312 T 15 QTc 450 Conclusion Atrial fibrillation with rapid ventricular response Cannot rule out Anterior infarct, age undetermined Abnormal ECG Electronically signed by : Sherif Linares MD 10/26/2020 16:02:14
--- NOTE | 2020-10-26 08:26 | HMH.ACPN2 ---
Internal Medicine - PN: Subj *Date: 10/26/20 *Time: 09:53 Interval history: Patient had some desaturations and dyspnea earlier this morning. Was changed from 5 L nasal cannula to 15 nonrebreather and is doing somewhat better now. He is in no distress, is calm and sitting up at the edge of the bed. He has some tachycardia associated with his dyspnea. We are getting another twelve-lead EKG. His lungs sound improved from yesterday, repeat chest film is pending. He remains on his current regimen. Patient's 12-lead EKG shows atrial fibrillation with a rapid ventricular response. I discussed with Dr. Rush. He is aware of this patient since admission on Tuesday with pericardial effusion. Cardiology is encouraged that patient is normotensive. Agreed with recommendation of Cardizem drip for rate control and anticoagulation. We will be moving the patient to a stepdown unit for the Cardizem drip. Exam Vital signs and Labs for Last 24 Hours: Temp Pulse Resp BP Pulse Ox 98.3 F 78 21 125/75 92 L 10/26/20 04:00 10/26/20 04:00 10/26/20 04:00 10/26/20 04:00 10/26/20 04:00 Laboratory Results - last 24 hr 10/25/20 09:45: Sodium 136, Potassium 3.8, Chloride 102, Carbon Dioxide 26, Anion Gap 11.8, BUN 8 L, Creatinine 0.60 L D, Estimated Creat Clear 309 H, Estimated GFR 148, Est GFR ( Amer) 179 D, Glucose 147 H D, Calcium 7.9 L, Total Bilirubin 0.6, AST 62 H, ALT 65, Alkaline Phosphatase 111, Total Protein 6.3, Albumin 3.3 L, Globulin 3.0, Albumin/Globulin Ratio 1.1 10/26/20 06:25: Sodium 139, Potassium 4.0, Chloride 103, Carbon Dioxide 29, Anion Gap 11.0, BUN 13 D, Creatinine 0.60 L, Estimated Creat Clear 310 H, Estimated GFR 148, Est GFR ( Amer) 179, Glucose 129 H, Calcium 8.0 L, Total Bilirubin 0.7, AST 55, ALT 56, Alkaline Phosphatase 94, Total Protein 6.4, Albumin 3.2 L, Globulin 3.2, Albumin/Globulin Ratio 1.0 L I & O for Last 24 hours: Intake & Output 10/23/20 10/24/20 10/25/20 10/26/20 23:59 23:59 23:59 23:59 Intake Total 120 / 240 825 / 1065 1240 / 1240 Output Total 451 / 451 700 / 700 Balance 120 / 240 374 / 614 540 / 540 Weight 305 lb 300 lb 301 lb - Constitutional no acute distress, cooperative - *Routine HEENT Exam Head: Present: normocephalic Eye: Present: EOMI, PERRL ENT: Present: mucous membranes moist - *Routine Neck Exam Present: supple. Absent: lymphadenopathy - *Routine Respiratory Exam Present: rhonchi. Absent: accessory muscle use, respiratory distress - *Routine Cardiovascular Exam Present: tachycardia, irregular rhythm - *Routine Abdominal Exam Present: soft, normoactive bowel sounds. Absent: tenderness - *Routine Extremities Exam Present: edema. Absent: cyanosis, clubbing - *Routine Skin Exam Present: warm. Absent: rash - *Routine Neurological Exam Present: alert, oriented X3 Assessment and Plan (1) Essential (primary) hypertension Status: Acute Category: Medical Code(s): I10 - Essential (primary) hypertension (2) Pericardial effusion Status: Acute Category: Medical Code(s): I31.3 - Pericardial effusion (noninflammatory) (3) Pneumonia due to COVID-19 virus Status: Acute Category: Medical Code(s): U07.1 - COVID-19; J12.82 - Pneumonia due to coronavirus disease 2019 (4) Respiratory failure with hypoxia Status: Acute Qualifiers: Chronicity: acute Qualified Code(s): J96.01 - Acute respiratory failure with hypoxia Category: Medical Code(s): J96.91 - Respiratory failure, unspecified with hypoxia (5) Chest pain Status: Acute Qualifiers: Chest pain type: unspecified Qualified Code(s): R07.9 - Chest pain, unspecified Category: Medical Code(s): R07.9 - Chest pain, unspecified (6) Essential hypertension Status: Acute Category: Medical Code(s): I10 - Essential (primary) hypertension (7) Headache Status: Acute Qualifiers: Headache type: tension-type Headache chronicity p
--- NOTE | 2020-10-26 09:35 | PC.NURSE ---
requesting patient be transferred to step down due to rapid afib. Cardizem bolus with 10mg ordered and request to run drip at 10mg. Target heart rate of 100. Lovenox ordered at 140 sq bid. Patient is resting on left side on nasal canula eating breakfast. Current heartrate is 77.
[2020-10-26 10:38] LABS: Thyroid Stimulating Hormone 0.41 uIU/mL (0.465-4.68)
--- NOTE | 2020-10-26 11:04 | PC.NURSE ---
Patient is being transferred to covid unit due to new order for Diltizem requiring more closely monitoring the patient. Patient was anxious upon learning of transfer to ICU, I explained to the patient that his condition has not changed, but due to the new medication he will need to be monitored. I also informed his of the same. Patient has done well throughout shift. He ambulated independently to the restroom without oxygen or notifying the staff. I was notified that his heartrate was elevated and his oxygen was low. His oxygen saturation was 80% after returning to the bed. He did quickly rebound to 92 with the 15L nonrebreather. Patient had a chocolate ensure for breakfast due to his inablility to eat while laying on his side, which is what he was instructed to do by respiratory therapy.
--- NOTE | 2020-10-26 16:15 | PC.NURSE ---
Cardizem gtt started at 1220 at 10 mg, increased to 15 mg at 1330. Pt remains in afib at this time. HR currently 90's to low 100's. Mx continues.
--- NOTE | 2020-10-26 19:36 | PC.NURSE ---
Pt is alert and oriented and able to make needs known. VSS. Cardizem gtt is infusing at 15 MG. Pt is still in afib with rate being 90's-100's still at this time. Pt encouraged to prone. Has been sitting in chair and continues on a non rebreather at this time at 15 L.
--- NOTE | 2020-10-26 20:20 | PC.NURSE ---
He is A&Ox4. He reports a slight burning in the right side of his abdomen. He stated the pain isn't bad but more like a discomfort. He ambulates independently to the bathroom. He continues on the non-rebreather. 2+non-pitting edema present to bilateral feet.
--- NOTE | 2020-10-26 21:19 | PC.NURSE ---
Weaned to nasal cannula on 6LPM per patient request. O2 sats 91-93%.
--- NOTE | 2020-10-26 21:52 | PC.NURSE ---
combivent inhaler given. unable to chart on mar
[2020-10-27] VITALS (13 sets, daily range): BP systolic 109–128; BP diastolic 75–90; PULSE 76–96; RESP 17–24; TEMP 36.4–36.9; O2SAT 88–94; BMI 39.4
--- NOTE | 2020-10-27 06:00 | XR_ITS ---
PROCEDURE INFORMATION: Exam: XR Chest Exam date and time: 10/27/2020 6:00 AM Age: 40 years old Clinical indication: Shortness of breath; Additional info: Covid TECHNIQUE: Imaging protocol: XR of the chest. Views: 1 view. COMPARISON: CR XR CHEST PORTABLE 10/25/2020 5:48 AM FINDINGS: Lungs: Stable patchy bilateral infiltrates. Pleural spaces: Unremarkable. No pleural effusion. No pneumothorax. Heart/Mediastinum: Unremarkable. No cardiomegaly. Bones/joints: Unremarkable. IMPRESSION: Essentially stable appearance compared to 10/25/2020, with findings above.
--- NOTE | 2020-10-27 06:11 | CA_ITS ---
APPROVED REPORT EXAM: Comprehensive 2D, Doppler, and color-flow Echocardiogram Nanny Caregiver: Rupinder Guardado CRT Ht: 6 ft 2 in Wt: 301lbs BSA: 2.59 BP: 130/70 mmHg Indications: Atrial Fibrillation, Hyperlipidemia, Hypertension/HDD 2D Dimensions LVOT 2.22 cm (M/F) 1.5-2.5 M-Mode Dimensions RVDd 3.76 cm (0.9-2.6) LA Diam 5.21 cm (1.9-4.0) LVDd 5.09 cm (3.5-5.7) Ao Diam 3.54 cm (2.0-3.7) LVDs 3.50 cm (3.5-5.7) IVSd 0.98 cm (0.6-1.1) PWd 0.96 cm (0.6-1.1) EF (Teich) 58.70% FS 31.20% EDV (Teich) 123.20 mL TAPSE 2.24 (<1.7) ESV (Teich) 50.90 mL LV Diastology E Decel Time 150.00 (160-240 msec) E/A Ratio 4.41 MED E' 8.10 (< 7 cm/sec) MED A' 2.50 cm/s E'/MED E' Ratio 12.79 (>14) LAT E' 4.10 (<10 cm/sec) LAT A' 11.20 cm/s E/LAT E' Ratio 25.27 (>14) Aortic Valve AO Peak GR. 7.50 mmHg Mitral Valve MV E Max Guillermo. 104.00 (40-130 cm/s) MV A Velocity 23.00 (40-130 cm/s) E/A Ratio 4.41 MV Decel. Time 150.00 (160-240 ms) MV PHT 44.00 ms Pulmonary Valve PV Peak Velocity 175.00 (50-150 cm/s) Tricuspid Valve TR P. Velocity 210.00 cm/s RAP Estimate 10.00 mmHg RVSP 27.60 mmHg Left Ventricle Left atrium is mildly enlarged, left ventricle is normal size, visually estimated ejection fraction 50% with no regional wall motion abnormality. Diastolic parameters are inconclusive. Right Ventricle Right atrium and right ventricle are normal size and contractility. Aortic Valve Aortic valve is minimally thickened and fibrosed, there is no aortic stenosis or aortic insufficiency. Mitral Valve Mitral valve is grossly normal, there is mild mitral regurgitation. Tricuspid Valve Tricuspid valve grossly normal, there is mild tricuspid irritation. Tricuspid rotation jet velocity is inadequate for calculation of the right ventricular systolic pressure. Pulmonic Valve Pulmonic valve is poorly visualized. Great Vessels Aortic root is normal size. Inferior vena cava appears to be mildly enlarged with less than 50% inspiratory collapse. Pericardium There is a moderate sized pericardial effusion noted, the Doppler interrogation of tricuspid and mitral valve is inadequate for assessment of intrapericardial pressure or tamponade physiology. Conclusion 1. Mildly enlarged left atrium, normal left ventricular size, estimated ejection fraction 50% with no regional wall motion abnormality, diastolic parameters are inconclusive. 2. Mild mitral and tricuspid regurgitation 3. Moderate sized circumferential pericardial effusion noted, good Doppler interrogation and this study is inadequate for assessment of intrapericardial pressure and tamponade physiology, inferior vena cava is mildly dilated with less than 50% inspiratory collapse. 4. If clinically indicated a repeat study with better Doppler technique or right heart cath is recommended. Electronically signed by : Magno Angulo MD 10/28/2020 06:40:14
[2020-10-27 06:32] LABS: Alanine Aminotransferase 62 U/L (12-78); Albumin Level 3.3 g/dl (3.5-5.0); Albumin/Globulin Ratio 1.1 (1.1-1.8); Alkaline Phosphatase 97 U/L (38-126); Aspartate Amino Transferase 62 U/L (17-59); Bilirubin,Total 0.8 mg/dl (0.2-1.3); Blood Urea Nitrogen 20 mg/dl (9-20); Carbon Dioxide 26 mmol/L (22.0-30.0); Chloride 105 mmol/L (98-107); Creatinine Clearance Estimated 271 mL/min (50-200); Estimated Glomerular Filt Rate 124 ml/min (>60); GFR (African American) 150 ML/MIN (>60); Glucose 124 mg/dl (74-100); Sodium 139 mmol/L (136-145); Total Protein,Serum 6.3 g/dl (6.3-8.2)
[2020-10-27 06:52] LABS: Basophils % 0.1 % (0.1-2.0); Hematocrit 40.8 % (42.0-52.0); Hemoglobin 13.2 g/dL (14.1-18.0); Lymphocytes % 10.8 % (10-50); Mean Corpuscular HGB Conc 32.2 g/dL (31.8-35.4); Mean Corpuscular Hemoglobin 28.6 pg (27.0-31.2); Mean Corpuscular Volume 88.6 fl (80-94); Mean Platelet Volume 7.5 fl (7.4-10.4); Monocytes # 0.5 K/mm3 (0.1-1.0); Monocytes % 6.3 % (1.7-9.3); Neutrophils # 7.2 K/mm3 (1.8-7.8); Neutrophils % 82.8 % (37.0-80.0); Platelet Count 390 K/mm3 (142-424); Red Blood Count 4.61 M/mm3 (4.60-6.20); Red Cell Distribution Width 13.3 % (11.5-17.5); White Blood Count 8.7 K/mm3 (4.8-10.8)
--- NOTE | 2020-10-27 09:57 | CA_ITS ---
APPROVED REPORT Bilateral Lower Extremity Venous Study for Senior Ui U[employer] Developer: CN Indications COVID-19, Hypoxia Vein Imaging CFV (R): compressive, spontaneous, phasic, augmentation SFJ (R): compressive, spontaneous, phasic, augmentation FEM (R): compressive, spontaneous, phasic, augmentation POP (R): compressive, spontaneous, phasic, augmentation DFV (R): compressive, spontaneous, phasic, augmentation PTV (R): compressive, spontaneous, phasic, augmentation GSV (R): compressive, spontaneous, phasic, augmentation SSV (R): compressive, spontaneous, phasic, augmentation Peroneals (R):compressive, spontaneous, phasic, augmentation GAS (R): compressive, spontaneous, phasic, augmentation CFV (L): compressive, spontaneous, phasic, augmentation SFJ (L): compressive, spontaneous, phasic, augmentation FEM (L): compressive, spontaneous, phasic, augmentation POP (L): compressive, spontaneous, phasic, augmentation DFV (L): compressive, spontaneous, phasic, augmentation PTV (L): compressive, spontaneous, phasic, augmentation GSV (L): compressive, spontaneous, phasic, augmentation SSV (L): compressive, spontaneous, phasic, augmentation Peroneals (L):compressive, spontaneous, phasic, augmentation GAS (L): compressive, spontaneous, phasic, augmentation Findings Color flow duplex demonstrates no evidence of DVT of the following bilateral lower extremity Veins:Common Femoral Vein, Femoral Vein, Popliteal Vein, Posterior Tibial Veins, Peroneal Veins, Deep Femoral Vein. Negative for DVT at this time. Conclusion Negative for DVT at this time. Electronically signed by : Jose Alberto Moran MD 10/27/2020 15:34:30
--- NOTE | 2020-10-27 11:13 | HMH.CNCARD ---
History of Present Illness Consult date: 10/27/20 Requesting physician: Gilbert Dow Consult reason: atrial fibrillation Chief complaint: SOA, Covid, pericardial effusion, A. fib Additional Medical History:: 1. Hypertension 2. Covid pneumonia, 10/2020 3. Atrial fibrillation related to Covid, 10/2020 4. Moderate pericardial effusion related to Covid, 10/2020 5. Hyperlipidemia History of present illness: Patient is a 40-year-old white male, service patient, who was admitted through the urgency room for progressive dyspnea. Patient became symptomatic 1 week ago, and had a positive rapid test at that point. Was on a course of a azithromycin and prednisone which he finished, and due to the progression of his symptoms he received an infusion of monoclonal antibodies in [employer] earlier today. Patient's clinical features progressed to a point where he sought medical attention here. His work-up emergency room included a chest x-ray which shows a fairly extensive patchy scattered pneumonia. He also underwent a CTA of the chest, this showed no pulmonary embolism but did demonstrate a moderate pericardial effusion. Patient has no cardiac history. His EKG showed sinus tachycardia without diffuse ST changes. Low voltage QRS. Troponins have been negative x2. Patient does have underlying hypertension. Patient is otherwise fairly healthy. He is status post gallbladder surgery, that is post sinus surgery. He is employed, has children at home. His has been vaccinated. The above from Dr. Dow' admission H&P Cardiology has been consulted due to the patient's moderate pericardial effusion along with development of atrial fibrillation. The pericardial effusion does not appear to be causing tamponade by the echocardiogram today. Atrial fibrillation has developed since his admission and he has been placed on therapeutic Lovenox since yesterday along with IV Cardizem which is now controlling his rate. He has no prior history of atrial fibrillation or cardiac issues. He has been treated for high blood pressure for several months. [facility] History Medical History: Reports:: Hyperlipidemia, Hypertension Denies:: Cancer, Diabetes Mellitus Type 1, Diabetes Mellitus Type 2, MRSA *Have you ever received a pneumonia vaccine?: No *Have you received a flu vaccine this season?: No Other Surgeries: Yes: Cholecystectomy, Other Amputation: No Fractures: No - *Social History Smoking Status: Never smoker Alcohol Intake: current Alcohol Intake Frequency:: holidays/special occasions only Substance Use Type: denies use *Occupational Status:: employed Housing: house Household Members: children, spouse *Travel in the last 8 weeks: None Family Hx:: Heart Attack Meds Home Medications Medication Instructions Recorded Confirmed Type Amlodipine Besylate [Amlodipine 10 mg PO HS 10/24/20 10/26/20 History 10mg Tab] Albuterol Sulfate [Albuterol 2 puff IH Q4HP PRN 10/25/20 10/25/20 History Sulfate Hfa] Rosuvastatin Calcium [Crestor 40mg 40 mg PO HS 10/25/20 10/25/20 History Tablets] Allergies Allergy/AdvReac Type Severity Reaction Status Date / Time No Known Allergies Allergy Unverified 10/25/20 08:28 Exam Vital signs and Labs for Last 24 Hours: Temp Pulse Resp BP Pulse Ox 97.6 F 89 17 117/87 92 L 10/27/20 06:00 10/27/20 06:00 10/27/20 06:00 10/27/20 06:00 10/27/20 06:00 Laboratory Results - last 24 hr 10/27/20 05:35: Sodium 139, Potassium 4.0, Chloride 105, Carbon Dioxide 26, Anion Gap 12.0, BUN 20 D, Creatinine 0.70, Estimated Creat Clear 271, Estimated GFR 124, Est GFR ( Amer) 150, Glucose 124 H, Calcium 8.0 L, Total Bilirubin 0.8, AST 62 H, ALT 62, Alkaline Phosphatase 97, Total Protein 6.3, Albumin 3.3 L, Globulin 3.0, Albumin/Globulin Ratio 1.1 10/27/20 05:35: WBC 8.7, RBC 4.61, Hgb 13.2 L, Hct 40.8 L, MCV 88.6, MCH 28.6, MCHC 32.2, RDW 13.3, Plt Count 390 D, MPV 7.5, Neut % (Auto) 82.8 H, Lymph % (Auto) 10.8,
--- NOTE | 2020-10-27 11:34 | DIET.NUTRFU ---
Weight stable, normal bowel function, intakes poor ~25%. Daily ensure added to order, pt may have additional supplements as needed.
[2020-10-27 11:41] LABS: C-Reactive Protein 26.4 mg/L (0-4); D-Dimer 1.97 ug/mL (0.0-0.5)
--- NOTE | 2020-10-27 11:50 | HMH.PULMCON ---
*Admission Date: 10/24/20 *Reason for consult:: Acute hypoxic respiratory failure, COVID-19 pneumonia *History of present illness: Mr. Saleem is a 40-year-old male yet to be vaccinated, no prior respiratory complaint no significant smoking history no family history of asthma however denies any personal history of asthma childhood respiratory symptoms presented hospital worsening respiratory pneumonia possible COVID-19 pneumonia needing 6 L nasal naloxone supplementation to maintain the desired oxygen saturations and pulmonary was called for further management. [facility] History Medical History: Reports:: Hyperlipidemia, Hypertension Denies:: Cancer, Diabetes Mellitus Type 1, Diabetes Mellitus Type 2, MRSA *Have you ever received a pneumonia vaccine?: No *Have you received a flu vaccine this season?: No Other Surgeries: Yes: Cholecystectomy, Other Amputation: No Fractures: No - *Social History Smoking Status: Never smoker Alcohol Intake: current Alcohol Intake Frequency:: holidays/special occasions only Substance Use Type: denies use *Occupational Status:: employed Housing: house Household Members: children, spouse *Travel in the last 8 weeks: None Family Hx:: Heart Attack ROS - Cons Reports body ache(s), Reports chills - Eyes Denies blind spots, Denies blurry vision - ENT Denies abnormal hearing - Card Reports shortness of breath, Reports shortness of breath with activity, Denies chest pain - Resp Respiratory: Reports chest congestion, Reports cough, Reports non-productive cough, Reports dyspnea, Reports dyspnea on exertion, Denies excessive phlegm production, Denies cough with sputum production - GI Gastrointestingal: Denies: abdominal pain - [place] Musculoskeletal: Denies abnormal gait, Denies decreased muscle mass - Psych Denies abnormal sleep pattern, Denies lack of enjoyment Meds Home Medications Medication Instructions Recorded Confirmed Type Amlodipine Besylate [Amlodipine 10 mg PO HS 10/24/20 10/26/20 History 10mg Tab] Albuterol Sulfate [Albuterol 2 puff IH Q4HP PRN 10/25/20 10/25/20 History Sulfate Hfa] Rosuvastatin Calcium [Crestor 40mg 40 mg PO HS 10/25/20 10/25/20 History Tablets] Allergies Allergy/AdvReac Type Severity Reaction Status Date / Time No Known Allergies Allergy Unverified 10/25/20 08:28 Exam - Constitutional Constitutional:: Present: no acute distress, comfortable - HENMT Exam HENMT: Present: normocephalic, atraumatic - Eye Exam Eyes:: Present: normal appearance both eyes and related structures - Neck Exam Neck:: Present: normal visual inspection - Respiratory Exam Respiratory:: Present: able to speak in complete sentences, no respiratory distress, crackles - Cardiovascular Exam Cardiac:: Present: S1, S2 - GI Exam GI:: Present: soft, no tenderness - Skin Exam Skin: Present: warm, no rash, dry - Neurological Exam Neurological: Present: alert, awake, normal cognition - Extremities Exam Extremities: Present: no cyanosis, no clubbing, edema Internal Medicine - CN: Reslt - Labs CBC & Chem 7: 10/27/20 05:35 10/27/20 05:35 Labs: Short CBC 10/27/20 Range/Units 05:35 WBC 8.7 (4.8-10.8) K/mm3 Hgb 13.2 L (14.1-18.0) g/dL Hct 40.8 L (42.0-52.0) % Plt Count 390 D (142-424) K/mm3 BMP 10/27/20 05:35 Sodium 139 Potassium 4.0 Chloride 105 Carbon Dioxide 26 BUN 20 D Creatinine 0.70 Glucose 124 H Calcium 8.0 L Liver Function 10/27/20 Range/Units 05:35 Total Bilirubin 0.8 (0.2-1.3) mg/dl AST 62 H (17-59) U/L ALT 62 (12-78) U/L Alkaline Phosphatase 97 (38-126) U/L Albumin 3.3 L (3.5-5.0) g/dl - ABG Interpretation ABG results: 10/24/20 16:27 VBG pH 7.40 VBG pCO2 41.9 VBG pO2 37.6 VBG HCO3 25.1 VBG Total CO2 26.4 VBG O2 Saturation 68.8 VBG Base Excess 0.2 Assessment and Plan (1) Essential (primary) hypertension Status: Acute Category:
--- NOTE | 2020-10-27 13:00 | HMH.ACPN2 ---
Internal Medicine - PN: Subj *Date: 10/27/20 *Time: 19:14 Interval history: Patient relays an uneventful night, no acute events. He notes tachycardia and dyspnea with exertion. He is maintaining decent saturations with nasal cannula at 6 L. Low has been 88%. Patient is in atrial fibrillation new onset. Was noted on Tuesday. He has a history of hypertension but no known coronary disease. Pericardial effusion was noted on CTA chest. Is been stable from a hemodynamic perspective. He is receiving dexamethasone as part of his Covid regimen. Exam Vital signs and Labs for Last 24 Hours: Temp Pulse Resp BP Pulse Ox 97.6 F 81 17 117/87 92 L 10/27/20 06:00 10/27/20 08:00 10/27/20 06:00 10/27/20 06:00 10/27/20 11:39 Laboratory Results - last 24 hr 10/27/20 05:35: Sodium 139, Potassium 4.0, Chloride 105, Carbon Dioxide 26, Anion Gap 12.0, BUN 20 D, Creatinine 0.70, Estimated Creat Clear 271, Estimated GFR 124, Est GFR ( Amer) 150, Glucose 124 H, Calcium 8.0 L, Total Bilirubin 0.8, AST 62 H, ALT 62, Alkaline Phosphatase 97, Total Protein 6.3, Albumin 3.3 L, Globulin 3.0, Albumin/Globulin Ratio 1.1 10/27/20 05:35: WBC 8.7, RBC 4.61, Hgb 13.2 L, Hct 40.8 L, MCV 88.6, MCH 28.6, MCHC 32.2, RDW 13.3, Plt Count 390 D, MPV 7.5, Neut % (Auto) 82.8 H, Lymph % (Auto) 10.8, [place] % (Auto) 6.3, Eos % (Auto) 0.0 L, Baso % (Auto) 0.1, Neut # (Auto) 7.2, Lymph # (Auto) 1.0, [place] # (Auto) 0.5, Eos # (Auto) 0.0, Baso # (Auto) 0.0 10/27/20 05:35: Hemoglobin A1c 6.0 10/27/20 10:34: D-Dimer 1.97 H 10/27/20 10:34: C-Reactive Protein 26.4 H I & O for Last 24 hours: Intake & Output 10/24/20 10/25/20 10/26/20 10/27/20 23:59 23:59 23:59 23:59 Intake Total 120 / 240 825 / 1065 2004 160 / 160 Output Total 451 / 451 1300 / 1300 Balance 120 / 240 374 / 614 705 / 705 160 / 160 Weight 305 lb 300 lb 302 lb 0.533 oz 307 lb 3 oz Microbiology Reports for the Last 24 Hours: Microbiology 10/24/20 14:18 Blood Blood Culture - Preliminary NO GROWTH AFTER 48 HOURS 10/24/20 14:18 Blood Blood Culture - Preliminary NO GROWTH AFTER 48 HOURS - Constitutional no acute distress, cooperative - *Routine HEENT Exam Head: Present: normocephalic Eye: Present: EOMI, PERRL ENT: Present: mucous membranes moist - *Routine Neck Exam Present: supple. Absent: lymphadenopathy - *Routine Respiratory Exam Present: rhonchi, crackles. Absent: accessory muscle use, respiratory distress, wheezes - *Routine Cardiovascular Exam Present: tachycardia, irregular rhythm - *Routine Abdominal Exam Present: soft, normoactive bowel sounds. Absent: tenderness - *Routine Extremities Exam Present: edema, full ROM. Absent: cyanosis - *Routine Skin Exam Present: warm. Absent: rash - *Routine Neurological Exam Present: alert, oriented X3 Assessment and Plan (1) Essential (primary) hypertension Status: Acute Category: Medical Code(s): I10 - Essential (primary) hypertension (2) Pericardial effusion Status: Acute Category: Medical Code(s): I31.3 - Pericardial effusion (noninflammatory) (3) Pneumonia due to COVID-19 virus Status: Acute Category: Medical Code(s): U07.1 - COVID-19; J12.82 - Pneumonia due to coronavirus disease 2019 (4) Respiratory failure with hypoxia Status: Acute Qualifiers: Chronicity: acute Qualified Code(s): J96.01 - Acute respiratory failure with hypoxia Category: Medical Code(s): J96.91 - Respiratory failure, unspecified with hypoxia (5) Chest pain Status: Acute Qualifiers: Chest pain type: unspecified Qualified Code(s): R07.9 - Chest pain, unspecified Category: Medical Code(s): R07.9 - Chest pain, unspecified (6) Essential hypertension Status: Acute Category: Medical Code(s): I10 - Essential (primary) hypertension (7) Headache Status: Acute Qualifiers: Headache type: tensi
[2020-10-27 13:37] LABS: Ferritin 1980 ng/ml (17.9-464)
--- NOTE | 2020-10-27 19:13 | PC.NURSE ---
SPECIMEN CUP GIVEN FOR SPUTUM. PATIENT INSTRUCTED ON WHAT TO DO
--- NOTE | 2020-10-27 20:33 | PC.NURSE ---
pt has rested in bed and in the chair this shift. pt was able to lay prone in the bed twice this shift for less than an hour each time. tolerated well. nad noted. pt tolerates nc well. pt is pleasant with staff.
--- NOTE | 2020-10-27 22:31 | PC.NURSE ---
Pt requested to be SL temporarily. Pt c/o swollen feet and ankles. Pt was noted to have edema to Thor ankles and feet.
[2020-10-28] VITALS (11 sets, daily range): BP systolic 110–132; BP diastolic 55–89; PULSE 60–101; RESP 16–27; TEMP 35.5–36.8; O2SAT 92–97; BMI 39.6
--- NOTE | 2020-10-28 04:46 | PC.NURSE ---
Pt has remained on 6L O2 NC with sats in low 90s. Pt has ambulated to BR and tolerated. No BM. Pt gets soa on exertion. Lungs are diminished t/o. Medications administered per apr. Pt remains controlled afib t/o night.VSS. No other concerns at this time. Will continue to monitor.
[2020-10-28 06:45] LABS: Basophils % 0.3 % (0.1-2.0); Eosinophils % 0.1 % (0.1-12.0); Hematocrit 41.1 % (42.0-52.0); Hemoglobin 13.5 g/dL (14.1-18.0); Lymphocytes # 1.1 K/mm3 (0.7-4.5); Lymphocytes % 13.2 % (10-50); Mean Corpuscular HGB Conc 32.9 g/dL (31.8-35.4); Mean Corpuscular Hemoglobin 28.8 pg (27.0-31.2); Mean Corpuscular Volume 87.6 fl (80-94); Mean Platelet Volume 7.9 fl (7.4-10.4); Monocytes # 0.5 K/mm3 (0.1-1.0); Monocytes % 6.3 % (1.7-9.3); Neutrophils # 6.4 K/mm3 (1.8-7.8); Neutrophils % 80.1 % (37.0-80.0); Platelet Count 415 K/mm3 (142-424); Red Blood Count 4.68 M/mm3 (4.60-6.20); Red Cell Distribution Width 13.1 % (11.5-17.5)
[2020-10-28 07:14] LABS: Alanine Aminotransferase 95 U/L (12-78); Albumin Level 3.3 g/dl (3.5-5.0); Alkaline Phosphatase 88 U/L (38-126); Anion Gap 12.5 mEq/L (5-15); Aspartate Amino Transferase 94 U/L (17-59); Bilirubin,Total 0.9 mg/dl (0.2-1.3); Blood Urea Nitrogen 16 mg/dl (9-20); Calcium 8.1 mg/dl (8.4-10.2); Carbon Dioxide 22 mmol/L (22.0-30.0); Chloride 105 mmol/L (98-107); Creatinine Clearance Estimated 381 mL/min (50-200); Estimated Glomerular Filt Rate 182 ml/min (>60); GFR (African American) 221 ML/MIN (>60); Globulin 3.2 g/dL (1.3-3.2); Glucose 116 mg/dl (74-100); Potassium 4.5 mmoL/L (3.5-5.1); Sodium 135 mmol/L (136-145); Total Protein,Serum 6.5 g/dl (6.3-8.2)
--- NOTE | 2020-10-28 08:09 | P.PN_ITS ---
Subjective Date: 10/28/20 Time: 08:09 Principal diagnosis: COVID, pericardial effusion Interval history: 40 yo WM at bedside eating breakfast in NAD. States he is feeling better. Able to sleep without complaints of sudden SOA. No appreciable evidence of pulsus paradoxus with manual BP check. Exam Vital signs and Labs for Last 24 Hours: Temp Pulse Resp BP Pulse Ox 97.9 F 81 26 H 128/85 97 10/28/20 04:00 10/28/20 06:00 10/28/20 06:00 10/28/20 06:00 10/28/20 06:00 Laboratory Results - last 24 hr 10/27/20 05:35: Hemoglobin A1c 6.0 10/27/20 10:34: D-Dimer 1.97 H 10/27/20 10:34: Ferritin 1980 H, C-Reactive Protein 26.4 H 10/28/20 05:55: Sodium 135 L, Potassium 4.5, Chloride 105, Carbon Dioxide 22, Anion Gap 12.5, BUN 16, Creatinine 0.50 L D, Estimated Creat Clear 381 H, Estimated GFR 182, Est GFR ( Amer) 221 D, Glucose 116 H, Calcium 8.1 L, Total Bilirubin 0.9, AST 94 H D, ALT 95 H D, Alkaline Phosphatase 88, Total Protein 6.5, Albumin 3.3 L, Globulin 3.2, Albumin/Globulin Ratio 1.0 L 10/28/20 05:55: WBC 8.0, RBC 4.68, Hgb 13.5 L, Hct 41.1 L, MCV 87.6, MCH 28.8, MCHC 32.9, RDW 13.1, Plt Count 415, MPV 7.9, Neut % (Auto) 80.1 H, Lymph % (Auto) 13.2, [place] % (Auto) 6.3, Eos % (Auto) 0.1, Baso % (Auto) 0.3, Neut # (Auto) 6.4, Lymph # (Auto) 1.1, [place] # (Auto) 0.5, Eos # (Auto) 0.0, Baso # (Auto) 0.0 I & O for Last 24 hours: Intake & Output 10/25/20 10/26/20 10/27/20 10/28/20 11:59 11:59 11:59 11:59 Intake Total 425 / 425 1760 / 1760 925 / 925 2856 / 2856 Output Total 451 / 451 1300 / 1300 1050 / 1050 Balance -26 / -26 460 / 460 925 / 925 1806 / 1806 Weight 300 lb 301 lb 307 lb 3 oz 308 lb 9 oz - Constitutional no acute distress - *Routine HEENT Exam Head: Present: normocephalic Eye: Present: EOMI, PERRL ENT: Present: mucous membranes moist - *Routine Neck Exam Present: supple. Absent: lymphadenopathy - *Routine Respiratory Exam Present: crackles - *Routine Cardiovascular Exam Present: RRR - *Routine Abdominal Exam Present: soft, normoactive bowel sounds. Absent: tenderness - *Routine Extremities Exam Absent: cyanosis, clubbing, edema - *Routine Skin Exam Present: warm. Absent: rash - *Routine Neurological Exam Present: alert, oriented X3 Progress Note: A&P (1) Essential (primary) hypertension Status: Acute (2) Pericardial effusion Status: Acute (3) Pneumonia due to COVID-19 virus Status: Acute (4) Respiratory failure with hypoxia Status: Acute (5) Chest pain Status: Acute (6) Essential hypertension Status: Acute (7) Headache Status: Acute (8) Hyperlipidemia Status: Acute (9) Atrial fibrillation Status: Acute Assessment and Plan for All Diagnoses:: 1. COVID pneumonia, per pulmonary 2. A. fib with CVR on oral diltiazem. Will switch lovenox to xarelto. Plan to consider cardioversion in 4 wks. 3. Pericardial effusion related to COVID infection, no evidence of tamponade. No further intervention at this time. Will continue to follow as an outpatient with limited echo. Nothing further to add at this time. Please call if needed.
[2020-10-28 08:37] LABS: Free T4 (Free Thyroxine) 0.94 ng/dl (0.78-2.19)
--- NOTE | 2020-10-28 10:21 | HMH.ACPN2 ---
Internal Medicine - PN: Subj *Date: 10/28/20 *Time: 11:35 Interval history: 40-year-old male patient sitting up to bedside, he reports he is feeling better today than yesterday currently oxygenation is 97% on 6 L per nasal cannula. Heart rate is less than 100 oral Cardizem has been started and IV drip is been DC'd. Exam Vital signs and Labs for Last 24 Hours: Temp Pulse Resp BP Pulse Ox 97.9 F 78 27 H 110/70 95 10/28/20 08:00 10/28/20 08:00 10/28/20 08:00 10/28/20 08:00 10/28/20 08:00 Laboratory Results - last 24 hr 10/27/20 10:34: D-Dimer 1.97 H 10/27/20 10:34: Ferritin 1980 H, C-Reactive Protein 26.4 H 10/28/20 05:55: Sodium 135 L, Potassium 4.5, Chloride 105, Carbon Dioxide 22, Anion Gap 12.5, BUN 16, Creatinine 0.50 L D, Estimated Creat Clear 381 H, Estimated GFR 182, Est GFR ( Amer) 221 D, Glucose 116 H, Calcium 8.1 L, Total Bilirubin 0.9, AST 94 H D, ALT 95 H D, Alkaline Phosphatase 88, Total Protein 6.5, Albumin 3.3 L, Globulin 3.2, Albumin/Globulin Ratio 1.0 L 10/28/20 05:55: WBC 8.0, RBC 4.68, Hgb 13.5 L, Hct 41.1 L, MCV 87.6, MCH 28.8, MCHC 32.9, RDW 13.1, Plt Count 415, MPV 7.9, Neut % (Auto) 80.1 H, Lymph % (Auto) 13.2, [place] % (Auto) 6.3, Eos % (Auto) 0.1, Baso % (Auto) 0.3, Neut # (Auto) 6.4, Lymph # (Auto) 1.1, [place] # (Auto) 0.5, Eos # (Auto) 0.0, Baso # (Auto) 0.0 10/28/20 05:55: Free T4 0.94 I & O for Last 24 hours: Intake & Output 10/25/20 10/26/20 10/27/20 10/28/20 23:59 23:59 23:59 23:59 Intake Total 825 / 1065 2004 3016 / 3016 120 / 120 Output Total 451 / 451 1300 / 1300 600 / 600 450 / 450 Balance 374 / 614 705 / 705 2416 / 2416 -330 / -330 Weight 300 lb 302 lb 0.533 oz 307 lb 3 oz 308 lb 9 oz - Constitutional no acute distress, cooperative - *Routine HEENT Exam Head: Present: normocephalic Eye: Present: EOMI ENT: Present: mucous membranes moist - *Routine Neck Exam Present: trachea midline. Absent: tracheal deviation - *Routine Respiratory Exam Present: crackles. Absent: accessory muscle use - *Routine Cardiovascular Exam Present: irregularly irregular Assessment and Plan (1) Essential (primary) hypertension Status: Acute Category: Medical Code(s): I10 - Essential (primary) hypertension (2) Pericardial effusion Status: Acute Category: Medical Code(s): I31.3 - Pericardial effusion (noninflammatory) (3) Pneumonia due to COVID-19 virus Status: Acute Category: Medical Code(s): U07.1 - COVID-19; J12.82 - Pneumonia due to coronavirus disease 2019 (4) Respiratory failure with hypoxia Status: Acute Qualifiers: Chronicity: acute Qualified Code(s): J96.01 - Acute respiratory failure with hypoxia Category: Medical Code(s): J96.91 - Respiratory failure, unspecified with hypoxia (5) Chest pain Status: Acute Qualifiers: Chest pain type: unspecified Qualified Code(s): R07.9 - Chest pain, unspecified Category: Medical Code(s): R07.9 - Chest pain, unspecified (6) Essential hypertension Status: Acute Category: Medical Code(s): I10 - Essential (primary) hypertension (7) Headache Status: Acute Qualifiers: Headache type: tension-type Headache chronicity pattern: acute headache Intractability: not intractable Qualified Code(s): G44.209 - Tension-type headache, unspecified, not intractable Category: Medical Code(s): R51 - Headache (8) Hyperlipidemia Status: Acute Qualifiers: Hyperlipidemia type: unspecified Qualified Code(s): E78.5 - Hyperlipidemia, unspecified Category: Medical Code(s): E78.5 - Hyperlipidemia, unspecified (9) Atrial fibrillation Status: Acute Category: Medical Code(s): I48.91 - Unspecified atrial fibrillation - Assessment and plan all Dx Assessment and Plan for all problems:: Rounded with Dr. Alvarez, all orders per Dr. Alvarez: 1. We will remove from stepdown status 2. Cardizem p.o. 3. Pulmonology following 4. Cardiology foll
--- NOTE | 2020-10-28 10:48 | HMH.ACPN ---
Internal Medicine - PN: Subj *Date: 10/28/20 *Time: 10:48 Exam Vital signs and Labs for Last 24 Hours: Temp Pulse Resp BP Pulse Ox 97.9 F 78 27 H 110/70 95 10/28/20 08:00 10/28/20 08:00 10/28/20 08:00 10/28/20 08:00 10/28/20 08:00 Laboratory Results - last 24 hr 10/27/20 10:34: D-Dimer 1.97 H 10/27/20 10:34: Ferritin 1980 H, C-Reactive Protein 26.4 H 10/28/20 05:55: Sodium 135 L, Potassium 4.5, Chloride 105, Carbon Dioxide 22, Anion Gap 12.5, BUN 16, Creatinine 0.50 L D, Estimated Creat Clear 381 H, Estimated GFR 182, Est GFR ( Amer) 221 D, Glucose 116 H, Calcium 8.1 L, Total Bilirubin 0.9, AST 94 H D, ALT 95 H D, Alkaline Phosphatase 88, Total Protein 6.5, Albumin 3.3 L, Globulin 3.2, Albumin/Globulin Ratio 1.0 L 10/28/20 05:55: WBC 8.0, RBC 4.68, Hgb 13.5 L, Hct 41.1 L, MCV 87.6, MCH 28.8, MCHC 32.9, RDW 13.1, Plt Count 415, MPV 7.9, Neut % (Auto) 80.1 H, Lymph % (Auto) 13.2, [place] % (Auto) 6.3, Eos % (Auto) 0.1, Baso % (Auto) 0.3, Neut # (Auto) 6.4, Lymph # (Auto) 1.1, [place] # (Auto) 0.5, Eos # (Auto) 0.0, Baso # (Auto) 0.0 10/28/20 05:55: Free T4 0.94 I & O for Last 24 hours: Intake & Output 10/25/20 10/26/20 10/27/20 10/28/20 23:59 23:59 23:59 23:59 Intake Total 825 / 1065 2004 3016 / 3016 120 / 120 Output Total 451 / 451 1300 / 1300 600 / 600 450 / 450 Balance 374 / 614 705 / 705 2416 / 2416 -330 / -330 Weight 136.078 kg 137 kg 139.338 kg 139.962 kg Assessment and Plan (1) Essential (primary) hypertension Status: Acute Category: Medical Code(s): I10 - Essential (primary) hypertension (2) Pericardial effusion Status: Acute Category: Medical Code(s): I31.3 - Pericardial effusion (noninflammatory) (3) Pneumonia due to COVID-19 virus Status: Acute Category: Medical Code(s): U07.1 - COVID-19; J12.82 - Pneumonia due to coronavirus disease 2019 (4) Respiratory failure with hypoxia Status: Acute Qualifiers: Chronicity: acute Qualified Code(s): J96.01 - Acute respiratory failure with hypoxia Category: Medical Code(s): J96.91 - Respiratory failure, unspecified with hypoxia (5) Chest pain Status: Acute Qualifiers: Chest pain type: unspecified Qualified Code(s): R07.9 - Chest pain, unspecified Category: Medical Code(s): R07.9 - Chest pain, unspecified (6) Essential hypertension Status: Acute Category: Medical Code(s): I10 - Essential (primary) hypertension (7) Headache Status: Acute Qualifiers: Headache type: tension-type Headache chronicity pattern: acute headache Intractability: not intractable Qualified Code(s): G44.209 - Tension-type headache, unspecified, not intractable Category: Medical Code(s): R51 - Headache (8) Hyperlipidemia Status: Acute Qualifiers: Hyperlipidemia type: unspecified Qualified Code(s): E78.5 - Hyperlipidemia, unspecified Category: Medical Code(s): E78.5 - Hyperlipidemia, unspecified (9) Atrial fibrillation Status: Acute Category: Medical Code(s): I48.91 - Unspecified atrial fibrillation The patient's infection will respond to the chosen ABx?: Yes Is the patient receiving the right drug, dose, and route?: Yes Could a more targeted ABx be ordered?: No (BLOOD CX - X2, AFEBRILE, WBC WNL)
--- NOTE | 2020-10-28 12:22 | HMH.PULMPN ---
Internal Medicine - PN: Subj *Date: 10/28/20 *Time: 12:22 Interval history: No acute respiratory vents overnight. Exam - Constitutional Constitutional:: Present: no acute distress, comfortable - HENMT Exam HENMT: Present: normocephalic - Neck Exam Neck:: Present: normal visual inspection - Respiratory Exam Respiratory:: Present: able to speak in complete sentences, normal respiratory effort. Absent: respiratory distress - Cardiovascular Exam Cardiac:: Present: S1, S2 - GI Exam GI:: Present: soft - Skin Exam Skin: Present: warm, no rash - Neurological Exam Neurological: Present: alert, awake, normal cognition - Extremities Exam Extremities: Present: no cyanosis, no clubbing, no edema Assessment and Plan (1) Essential (primary) hypertension Status: Acute Category: Medical Code(s): I10 - Essential (primary) hypertension (2) Pericardial effusion Status: Acute Category: Medical Code(s): I31.3 - Pericardial effusion (noninflammatory) (3) Pneumonia due to COVID-19 virus Status: Acute Category: Medical Code(s): U07.1 - COVID-19; J12.82 - Pneumonia due to coronavirus disease 2019 (4) Respiratory failure with hypoxia Status: Acute Qualifiers: Chronicity: acute Qualified Code(s): J96.01 - Acute respiratory failure with hypoxia Category: Medical Code(s): J96.91 - Respiratory failure, unspecified with hypoxia (5) Chest pain Status: Acute Qualifiers: Chest pain type: unspecified Qualified Code(s): R07.9 - Chest pain, unspecified Category: Medical Code(s): R07.9 - Chest pain, unspecified (6) Essential hypertension Status: Acute Category: Medical Code(s): I10 - Essential (primary) hypertension (7) Headache Status: Acute Qualifiers: Headache type: tension-type Headache chronicity pattern: acute headache Intractability: not intractable Qualified Code(s): G44.209 - Tension-type headache, unspecified, not intractable Category: Medical Code(s): R51 - Headache (8) Hyperlipidemia Status: Acute Qualifiers: Hyperlipidemia type: unspecified Qualified Code(s): E78.5 - Hyperlipidemia, unspecified Category: Medical Code(s): E78.5 - Hyperlipidemia, unspecified (9) Atrial fibrillation Status: Acute Category: Medical Code(s): I48.91 - Unspecified atrial fibrillation - Assessment and plan all Dx Assessment and Plan for all problems:: #COVID-19 pneumonia: #Acute hypoxic respiratory failure: 40-year-old actively vaccinated no significant smoking issue no prior respiratory complaints. D-dimer elevated at 1.97. CT on admission did not change evidence of pulmonary bulge however showed bilateral diffuse patchy pulmonary filtrates and bilateral effusions. Patient echocardiogram also showed pericardial effusion concerning for volume overload. Examination also showed continued lower extremity edema up to knees. Echocardiogram also showed pericardial effusion with no tamponade physiology. Patient respiratory status slightly improved from yesterday. He this morning on 6 L nasal cannula saturating 93 to 94%. Lower extremity Doppler negative for DVT. Plan: -Volume optimization as per primary team and cardiology. -Follow with sputum cultures will proceed with flutter valve -Continue remdesivir dexamethasone and initiate but certainly for COVID-19 pneumonia. -Continue ceftriaxone azithromycin for possible community-acquired pneumonia. -Continue Combivent every 6 hours scheduled. We will continue nasal cannula oxygen supplementation to maintain O2 saturation goal of 90% and above. #Thank you for involving pulmonary in this patient care. We will continue to follow.
--- NOTE | 2020-10-28 17:51 | PC.NURSE ---
pt states he has had much better day. he mobilized around the room and tolerated well. pt remains on 6LNC. IV to right hand patent and infusing w/o difficulty. pt voiding per urinal w/o difficulty. pt has laid prone intermittantly t/o shift. VSS. pt remains in afib on telemetry. will continue to monitor.
[2020-10-29] VITALS: BP 106/75; PULSE 70; PULSE 82; RESP 24; TEMP 36.2; O2SAT 92
--- NOTE | 2020-10-29 03:46 | PC.NURSE ---
No acute changes noted this shift. Pt has remained on 6L O2 NC. He has Ambulated to BR this shift and tolerated well. No complaints this shift. VSS. Medication administered per mar. Will continue to monitor.
[2020-10-29 04:00] VITALS: BP 101/67; PULSE 60; PULSE 64; RESP 24; TEMP 36.7; O2SAT 95
[2020-10-29 04:56] VITALS: BMI 38.4
[2020-10-29 07:36] LABS: Basophils % 0.3 % (0.1-2.0); Eosinophils % 0.1 % (0.1-12.0); Hematocrit 42.7 % (42.0-52.0); Hemoglobin 13.9 g/dL (14.1-18.0); Lymphocytes # 1.3 K/mm3 (0.7-4.5); Lymphocytes % 11.9 % (10-50); Mean Corpuscular HGB Conc 32.6 g/dL (31.8-35.4); Mean Corpuscular Hemoglobin 28.4 pg (27.0-31.2); Mean Corpuscular Volume 87.3 fl (80-94); Mean Platelet Volume 7.6 fl (7.4-10.4); Monocytes # 0.7 K/mm3 (0.1-1.0); Monocytes % 6.6 % (1.7-9.3); Neutrophils # 8.5 K/mm3 (1.8-7.8); Platelet Count 465 K/mm3 (142-424); Red Blood Count 4.89 M/mm3 (4.60-6.20); Red Cell Distribution Width 13.3 % (11.5-17.5); White Blood Count 10.5 K/mm3 (4.8-10.8)
[2020-10-29 08:00] VITALS: BP 110/85; PULSE 80; PULSE 89; PULSE 90; RESP 22; O2SAT 94; O2SAT 97
[2020-10-29 08:05] LABS: Anion Gap 15.2 mEq/L (5-15); Blood Urea Nitrogen 17 mg/dl (9-20); Calcium 8.5 mg/dl (8.4-10.2); Carbon Dioxide 23 mmol/L (22.0-30.0); Chloride 103 mmol/L (98-107); Creatinine Clearance Estimated 264 mL/min (50-200); Estimated Glomerular Filt Rate 124 ml/min (>60); GFR (African American) 150 ML/MIN (>60); Glucose 113 mg/dl (74-100); Potassium 4.2 mmoL/L (3.5-5.1); Sodium 137 mmol/L (136-145)
--- NOTE | 2020-10-29 08:41 | HMH.ACPN2 ---
Internal Medicine - PN: Subj *Date: 10/29/20 *Time: 11:02 Interval history: 40-year-old male patient sitting up on side of bed, he does report feeling better today than yesterday. Current oxygenation 94% on 6 L per nasal cannula. Exam Vital signs and Labs for Last 24 Hours: Temp Pulse Resp BP Pulse Ox 98.1 F 64 24 101/67 L 95 10/29/20 04:00 10/29/20 04:00 10/29/20 04:00 10/29/20 04:00 10/29/20 04:00 Laboratory Results - last 24 hr 10/28/20 05:55: Free T4 0.94 10/29/20 06:00: WBC 10.5 D, RBC 4.89, Hgb 13.9 L, Hct 42.7, MCV 87.3, MCH 28.4, MCHC 32.6, RDW 13.3, Plt Count 465 H, MPV 7.6, Neut % (Auto) 81.0 H, Lymph % (Auto) 11.9, [place] % (Auto) 6.6, Eos % (Auto) 0.1, Baso % (Auto) 0.3, Neut # (Auto) 8.5 H, Lymph # (Auto) 1.3, [place] # (Auto) 0.7, Eos # (Auto) 0.0, Baso # (Auto) 0.0 10/29/20 06:00: Sodium 137, Potassium 4.2, Chloride 103, Carbon Dioxide 23, Anion Gap 15.2 H, BUN 17, Creatinine 0.70 D, Estimated Creat Clear 264, Estimated GFR 124, Est GFR ( Amer) 150 D, Glucose 113 H, Calcium 8.5 I & O for Last 24 hours: Intake & Output 10/26/20 10/27/20 10/28/20 10/29/20 23:59 23:59 23:59 23:59 Intake Total 2004 3016 / 3016 360 / 360 Output Total 1300 / 1300 600 / 600 2525 / 2525 Balance 705 / 705 2416 / 2416 -2165 / -2165 Weight 302 lb 0.533 oz 307 lb 3 oz 308 lb 9 oz 299 lb 6 oz Assessment and Plan (1) Essential (primary) hypertension Status: Acute Category: Medical Code(s): I10 - Essential (primary) hypertension (2) Pericardial effusion Status: Acute Category: Medical Code(s): I31.3 - Pericardial effusion (noninflammatory) (3) Pneumonia due to COVID-19 virus Status: Acute Category: Medical Code(s): U07.1 - COVID-19; J12.82 - Pneumonia due to coronavirus disease 2019 (4) Respiratory failure with hypoxia Status: Acute Qualifiers: Chronicity: acute Qualified Code(s): J96.01 - Acute respiratory failure with hypoxia Category: Medical Code(s): J96.91 - Respiratory failure, unspecified with hypoxia (5) Chest pain Status: Acute Qualifiers: Chest pain type: unspecified Qualified Code(s): R07.9 - Chest pain, unspecified Category: Medical Code(s): R07.9 - Chest pain, unspecified (6) Essential hypertension Status: Acute Category: Medical Code(s): I10 - Essential (primary) hypertension (7) Headache Status: Acute Qualifiers: Headache type: tension-type Headache chronicity pattern: acute headache Intractability: not intractable Qualified Code(s): G44.209 - Tension-type headache, unspecified, not intractable Category: Medical Code(s): R51 - Headache (8) Hyperlipidemia Status: Acute Qualifiers: Hyperlipidemia type: unspecified Qualified Code(s): E78.5 - Hyperlipidemia, unspecified Category: Medical Code(s): E78.5 - Hyperlipidemia, unspecified (9) Atrial fibrillation Status: Acute Category: Medical Code(s): I48.91 - Unspecified atrial fibrillation - Assessment and plan all Dx Assessment and Plan for all problems:: Rounded with Dr. Alvarez, all orders per Dr. Alvarez: 1. Continue to wean oxygen as tolerated 2. Pulmonary following
[2020-10-29 11:00] VITALS: O2SAT 94
[2020-10-29 12:00] VITALS: BP 112/88; PULSE 100; PULSE 90; RESP 22; TEMP 37; O2SAT 95
--- NOTE | 2020-10-29 13:15 | HMH.PULMPN ---
Internal Medicine - PN: Subj *Date: 10/29/20 *Time: 13:15 Interval history: No acute respiratory events overnight. Exam - Constitutional Constitutional:: Present: no acute distress, comfortable - HENMT Exam HENMT: Present: normocephalic, atraumatic - Eye Exam Eyes:: Present: normal appearance both eyes and related structures - Neck Exam Neck:: Present: normal visual inspection - Respiratory Exam Respiratory:: Present: able to speak in complete sentences - Cardiovascular Exam Cardiac:: Present: S1, S2 - GI Exam GI:: Present: soft - Skin Exam Skin: Present: warm, no rash - Neurological Exam Neurological: Present: alert, awake, normal cognition Assessment and Plan (1) Essential (primary) hypertension Status: Acute Category: Medical Code(s): I10 - Essential (primary) hypertension (2) Pericardial effusion Status: Acute Category: Medical Code(s): I31.3 - Pericardial effusion (noninflammatory) (3) Pneumonia due to COVID-19 virus Status: Acute Category: Medical Code(s): U07.1 - COVID-19; J12.82 - Pneumonia due to coronavirus disease 2019 (4) Respiratory failure with hypoxia Status: Acute Qualifiers: Chronicity: acute Qualified Code(s): J96.01 - Acute respiratory failure with hypoxia Category: Medical Code(s): J96.91 - Respiratory failure, unspecified with hypoxia (5) Chest pain Status: Acute Qualifiers: Chest pain type: unspecified Qualified Code(s): R07.9 - Chest pain, unspecified Category: Medical Code(s): R07.9 - Chest pain, unspecified (6) Essential hypertension Status: Acute Category: Medical Code(s): I10 - Essential (primary) hypertension (7) Headache Status: Acute Qualifiers: Headache type: tension-type Headache chronicity pattern: acute headache Intractability: not intractable Qualified Code(s): G44.209 - Tension-type headache, unspecified, not intractable Category: Medical Code(s): R51 - Headache (8) Hyperlipidemia Status: Acute Qualifiers: Hyperlipidemia type: unspecified Qualified Code(s): E78.5 - Hyperlipidemia, unspecified Category: Medical Code(s): E78.5 - Hyperlipidemia, unspecified (9) Atrial fibrillation Status: Acute Category: Medical Code(s): I48.91 - Unspecified atrial fibrillation - Assessment and plan all Dx Assessment and Plan for all problems:: #COVID-19 pneumonia: #Acute hypoxic respiratory failure: 40-year-old actively vaccinated no significant smoking issue no prior respiratory complaints. D-dimer elevated at 1.97. CT on admission did not change evidence of pulmonary bulge however showed bilateral diffuse patchy pulmonary filtrates and bilateral effusions. Patient echocardiogram also showed pericardial effusion concerning for volume overload. Examination also showed continued lower extremity edema up to knees. Echocardiogram also showed pericardial effusion with no tamponade physiology. Lower extremity Doppler negative for DVT. Patient respiratory status continued to improve with improving oxygen equipments. This morning on 4 L nasal cannula. Plan: -Volume optimization as per primary team and cardiology. -Follow with sputum cultures will proceed with flutter valve -Continue remdesivir dexamethasone and initiate but certainly for COVID-19 pneumonia. -Continue ceftriaxone azithromycin for possible community-acquired pneumonia. -Continue Combivent every 6 hours scheduled. We will continue nasal cannula oxygen supplementation to maintain O2 saturation goal of 90% and above. #Thank you for involving pulmonary in this patient care. We will continue to follow.
--- NOTE | 2020-10-29 13:48 | SW/DCPLANNER ---
I have faxed patient information/order to [facility] for patient to discharge home with home O2/portable. Kristin with [employer] stated that portable tank will be delivered to patients room today.
--- NOTE | 2020-10-29 13:50 | HMH.DCSUM ---
General - General Admission date:: 10/24/20 Discharge date: 10/29/20 HPI HPI: Patient is a 40-year-old white male, service patient, who was admitted through the urgency room for progressive dyspnea. Patient became symptomatic 1 week ago, and had a positive rapid test at that point. Was on a course of a azithromycin and prednisone which he finished, and due to the progression of his symptoms he received an infusion of monoclonal antibodies in [place] earlier today. Patient's clinical features progressed to a point where he sought medical attention here. His work-up emergency room included a chest x-ray which shows a fairly extensive patchy scattered pneumonia. He also underwent a CTA of the chest, this showed no pulmonary embolism but did demonstrate a moderate pericardial effusion. Patient has no cardiac history. His EKG showed sinus tachycardia without diffuse ST changes. Low voltage QRS. Troponins have been negative x2. Patient does have underlying hypertension. Patient is otherwise fairly healthy. He is status post gallbladder surgery, that is post sinus surgery. He is employed, has children at home. His has been vaccinated. Hospital Course Hospital Course: 10/24/20 Chest CTA: FINDINGS: HEART AND MEDIASTINAL STRUCTURES: There is a moderate to large size pericardial effusion with pericardial space measuring up to 3 cm in thickness. Pulmonary arterial opacification is somewhat limited despite repeating the exam. No definite pulmonary embolus apparent. The small pulmonary emboli may not be seen. There are few small mediastinal lymph nodes. LUNGS AND PLEURAL SPACES: Multi segmental areas of ground-glass opacities and scattered areas of consolidation are noted consistent with Covid19 pneumonia. There are small bilateral pleural effusions. No areas of cavitation. BONY STRUCTURES: No acute bony abnormalities apparent. UPPER ABDOMEN: Splenomegaly at 18 cm. ADDITIONAL FINDINGS: No other significant abnormalities. IMPRESSION: 1. No definite evidence of pulmonary embolus. 2. Moderate to large size pericardial effusion 3. Multifocal bilateral pneumonia consistent with Covid19 pneumonia with small bilateral effusions 4. Splenomegaly Dictated by: Jose Alberto Moran MD 10/24/20 CXR: FINDINGS: There is mild cardiomegaly without failure. Multifocal bilateral infiltrates are present with some sparing of the apices consistent with Covid19 pneumonia. No effusions. No evidence of pneumothorax. No acute bony abnormalities. IMPRESSION: Moderate to severe bilateral multi focal infiltrates consistent with Covid19 pneumonia Dictated by: Jose Alberto Moran MD 10/27/20 ECHO: Conclusion 1. Mildly enlarged left atrium, normal left ventricular size, estimated ejection fraction 50% with no regional wall motion abnormality, diastolic parameters are inconclusive. 2. Mild mitral and tricuspid regurgitation 3. Moderate sized circumferential pericardial effusion noted, good Doppler interrogation and this study is inadequate for assessment of intrapericardial pressure and tamponade physiology, inferior vena cava is mildly dilated with less than 50% inspiratory collapse. 4. If clinically indicated a repeat study with better Doppler technique or right heart cath is recommended. Electronically signed by : Magno Angulo MD 10/27/20 BLE Venous Doppler: Findings Color flow duplex demonstrates no evidence of DVT of the following bilateral lower extremity Veins:Common Femoral Vein, Femoral Vein, Popliteal Vein, Posterior Tibial Veins, Peroneal Veins, Deep Femoral Vein. Negative for DVT at this time. Conclusion Negative for DVT at this time. Electronically signed by : Jose Alberto Moran MD Cardiology has seen and recommends: 1. COVID pneumonia, per pulmonary 2. A. fib with CVR on oral diltiazem. Will switch lovenox to xarelto. Plan to consider cardioversion in 4 wks. 3. Pericardial effusion related to CO
== END 2020-10-29 16:00 | disposition home or self-care (01) | DRG 177 ==
LOC: ER 16:32 → 2ND 10-25 07:51 → ICU 10-26 11:40
PROVIDERS: Internal Medicine Pulmonary Disease; Nurse Practitioner Family; Admitting Provider Family Medicine; Emergency Provider Emergency Medicine; PCP Family Medicine; Visit Provider Family Medicine
DX: U07.1 COVID-19 (principal); J12.82 Pneumonia due to coronavirus disease 2019; J96.01 Acute respiratory failure with hypoxia; I31.3 Pericardial effusion (noninflammatory); I10 Essential (primary) hypertension; I48.91 Unspecified atrial fibrillation; E78.5 Hyperlipidemia, unspecified
CPT/HCPCS: 36415; 71045; 71275; 80048; 80053; 82728; 82803; 83036; 83605; 84439; 84443; 84484; 85007; 85025; 85378; 86140; 87040; 93005; 93306; 93970; 94640; 94760; 94761; 96365; 96367; 96375; 99285; C9803; J0456; Q9967; U0003; U0005

== ENCOUNTER → 2020-11-11 15:22 | Outpatient (CLI) | payer BC, SELFPAY ==
--- NOTE | 2020-11-11 15:22 | CA_ITS ---
APPROVED REPORT EXAM: Comprehensive 2D, Doppler, and color-flow Echocardiogram [employer] Make[employer] Artist: Sarina Quiroz RT(R) Ht: 6 ft 2 in Wt: 288lbs BSA: 2.54 BP: 127/80 mmHg Indications: SOB, post covid, pericardial effusion on echo 10/24/20, CP, HTN, fatigue, hyperlipidemia 2D Dimensions LVOT 2.26 cm (M/F) 1.5-2.5 LA Volume 82.00 mL LA Volume Index 32.41 mL/m2 (M/F) 16-34 M-Mode Dimensions RVDd 2.68 cm (0.9-2.6) LA Diam 4.89 cm (1.9-4.0) LVDd 3.71 cm (3.5-5.7) Ao Diam 3.00 cm (2.0-3.7) LVDs 2.28 cm (3.5-5.7) IVSd 0.67 cm (0.6-1.1) PWd 1.07 cm (0.6-1.1) EF (Teich) 69.70% FS 38.50% EDV (Teich) 58.50 mL ESV (Teich) 17.70 mL LV Diastology E Decel Time 193.00 (160-240 msec) E/A Ratio 1.1 MED E' 10.40 (< 7 cm/sec) E'/MED E' Ratio 9.09 (>14) LAT E' 11.00 (<10 cm/sec) E/LAT E' Ratio 8.59 (>14) Mitral Valve MV E Max Guillermo. 95.00 (40-130 cm/s) MV A Velocity 85.00 (40-130 cm/s) E/A Ratio 1.11 MV Decel. Time 193.00 (160-240 ms) MV PHT 57.00 ms Left Ventricle Left atrium is mildly enlarged, left ventricle is normal size, visually estimated ejection fraction 55% with no regional wall motion abnormality, diastolic parameters are inconclusive in the study. Right Ventricle Right atrium and right ventricle are normal size and contractility. Aortic Valve Aortic valve is minimally thickened and fibrosed. There is no aortic stenosis or aortic insufficiency. Mitral Valve Mitral valve grossly normal, there is mild mitral regurgitation. Tricuspid Valve Tricuspid valve grossly normal, there is mild tricuspid regurgitation, tricuspid regurgitation jet velocity is inadequate for calculation of the right ventricular systolic pressure. Pulmonic Valve Pulmonic valve is poorly visualized. Great Vessels Aortic root is normal size. Inferior vena cava is poorly visualized. Pericardium There is moderate sized pericardial effusion noted, there is variation in the mitral inflow velocity seen with respiration, raising the concerns for presence of raised intrapericardial pressure. Conclusion 1. Normal left ventricular size, preserved left ventricular systolic function, visually estimated ejection fraction 55% with no regional wall motion abnormality, diastolic parameters are inconclusive in the study. 2. Moderate-sized pericardial effusion noted, most of the effusion is posterior on the left ventricle side, there is variation in the mitral inflow velocity with respiration, raising the concerns for raised intrapericardial pressure. 3. If clinically indicated repeat serial echocardiograms is recommended. Electronically signed by : Magno Angulo MD 11/11/2020 18:11:07
== END ==
LOC: RT 15:22
PROVIDERS: PCP Family Medicine; Visit Provider Nurse Practitioner Family
DX: R07.9 Chest pain, unspecified (principal); U07.1 COVID-19; I31.3 Pericardial effusion (noninflammatory); J12.82 Pneumonia due to coronavirus disease 2019; I48.91 Unspecified atrial fibrillation; I10 Essential (primary) hypertension; E78.5 Hyperlipidemia, unspecified
CPT/HCPCS: 93306

== ENCOUNTER → 2022-10-22 12:00 | Outpatient (CLI) | payer BC, SELFPAY | PROVIDERS: PCP Student in an Organized Health Care Education/Training Program; Visit Provider Student in an Organized Health Care Education/Training Program | DX: N50.89 Other specified disorders of the male genital organs (principal) ==

== ENCOUNTER → 2022-10-22 14:29 | Outpatient (CLI) | payer BC, SELFPAY ==
--- NOTE | 2022-10-22 14:32 | US_ITS ---
FINAL REPORT TECHNIQUE: Ultrasound images of the testicles were obtained bilaterally. Color Doppler images were obtained. CLINICAL HISTORY: .test swelling pain since tuesday COMPARISON: None FINDINGS: The right testicle measures 3.9 cm. There is normal blood flow. There are small cysts in the right testicle. The right epididymis is enlarged and heterogeneous. There is a small right hydrocele. Left testicle measures 4.5 cm. There is normal blood flow. No masses seen. There is a small left hydrocele. The left epididymis is enlarged and heterogeneous. There is marked scrotal skin thickening. IMPRESSION: Findings consistent with bilateral epididymitis. Marked scrotal skin thickening. Reviewed, Interpreted and Dictated by Otf Enciso III, MD Transcribed by Megan Littlejohn Authenticated and [facility]
[2022-10-25 21:30] LABS: Neisseria gonorrhoeae, NAA Negative (Negative)
== END ==
LOC: RAD 14:30
PROVIDERS: PCP Family Medicine; Visit Provider Student in an Organized Health Care Education/Training Program
DX: N50.89 Other specified disorders of the male genital organs (principal)
CPT/HCPCS: 76870; 87086; 87491; 87591

== ENCOUNTER → 2022-11-02 13:38 | Outpatient (CLI) | payer BC, SELFPAY ==
[2022-11-02 14:02] LABS: Blood Urea Nitrogen 20 mg/dl (9-20); Estimated Glomerular Filt Rate 92 ml/min (>60); GFR (African American) 111 ML/MIN (>60)
--- NOTE | 2022-11-02 15:20 | CT_ITS ---
FINAL REPORT TECHNIQUE: Axial images were obtained from the lung bases through the pubic symphysis before and after the administration of intravenous contrast. Oral contrast was administered. This study was performed with techniques to keep radiation doses as low as reasonably achievable (ALARA). Individualized dose reduction techniques using automated exposure control or adjustment of mA and/or kV according to the patient's size were employed. CLINICAL HISTORY: LOWER ABD PAIN, SCROTAL SWELLING FINDINGS: Precontrast images demonstrate no evidence of nephrolithiasis or hydronephrosis. Abdomen: The lung bases are clear. There is a trace right pleural effusion. The liver parenchyma is homogeneous. There is moderate hepatosplenomegaly. The gallbladder is absent. The pancreas and adrenal glands are unremarkable. The kidneys enhance normally. There are a multitude of abnormally enlarged lymph nodes throughout the mesentery. There is hazy stranding in the mesentery. There are multiple para-aortic lymph nodes. Lymph nodes are more numerous than typically seen. There is no evidence of bowel obstruction. Pelvis: The appendix is not identified. The urinary bladder is incompletely distended. There are multiple bilateral inguinal lymph nodes measuring up to 2.9 cm. There is asymmetric enlargement of the left external iliac vein up to 3.5 cm. There are moderate bilateral hydroceles. IMPRESSION: Mesenteric, retroperitoneal and inguinal adenopathy with hazy mesenteric stranding. Lymphoma is a concern. Recommend tissue sampling. Moderate hepatosplenomegaly. Moderate bilateral hydroceles. Asymmetrically enlarged left external iliac vein. Venous thrombosis cannot be excluded. Reviewed, Interpreted and Dictated by Marcell Ugalde MD Transcribed by Rafael Reilly Authenticated and . [facility]
== END ==
PROVIDERS: PCP Family Medicine; Visit Provider Urology
DX: R06.09 Other forms of dyspnea (principal); I48.0 Paroxysmal atrial fibrillation; R60.9 Edema, unspecified
CPT/HCPCS: 36415; 74178; 82565; 84520; 93270; Q9967

== ENCOUNTER 2022-11-24 14:41 | Outpatient (RCR) | payer BC, SELFPAY | END 2022-11-24 14:45 | disposition home or self-care (01) | LOC: PT 14:41 | PROVIDERS: PCP Family Medicine; Visit Provider Family Medicine | DX: I89.0 Lymphedema, not elsewhere classified (principal) | CPT/HCPCS: 97163 ==

== ENCOUNTER 2023-05-17 14:35 | Outpatient (CLI) | payer BC, SELFPAY ==
[2023-05-17 14:50] LABS: Basophils # 0.1 K/mm3 (0-0.2); Basophils % 1.1 % (0.1-2.0); Eosinophils # 0.2 K/mm3 (0.0-0.4); Eosinophils % 2.6 % (0.1-12.0); Hematocrit 28.1 % (42.0-52.0); Hemoglobin 8.7 g/dL (14.1-18.0); Lymphocytes # 1.1 K/mm3 (0.7-4.5); Lymphocytes % 14.8 % (10-50); Mean Corpuscular HGB Conc 30.9 g/dL (31.8-35.4); Mean Corpuscular Hemoglobin 27.6 pg (27.0-31.2); Mean Corpuscular Volume 89.4 fl (80-94); Mean Platelet Volume 8.7 fl (7.4-10.4); Monocytes # 0.6 K/mm3 (0.1-1.0); Monocytes % 8.6 % (1.7-9.3); Neutrophils # 5.2 K/mm3 (1.8-7.8); Neutrophils % 73.1 % (37.0-80.0); Platelet Count 420 K/mm3 (142-424); Red Blood Count 3.14 M/mm3 (4.60-6.20); Red Cell Distribution Width 15.8 % (11.5-17.5); White Blood Count 7.1 K/mm3 (4.8-10.8)
[2023-05-17 15:41] LABS: Alanine Aminotransferase 16 U/L (12-78); Albumin Level 4.1 g/dl (3.5-5.0); Albumin/Globulin Ratio 1.6 (1.1-1.8); Alkaline Phosphatase 302 U/L (38-126); Anion Gap 12.2 mEq/L (5-15); Aspartate Amino Transferase 30 U/L (17-59); Bilirubin,Total 1.3 mg/dl (0.2-1.3); Blood Urea Nitrogen 18 mg/dl (9-20); Calcium 9.8 mg/dl (8.4-10.2); Carbon Dioxide 26 mmol/L (22.0-30.0); Chloride 105 mmol/L (98-107); Estimated Glomerular Filt Rate 92 ml/min (>60); GFR (African American) 111 ML/MIN (>60); Globulin 2.6 g/dL (1.3-3.2); Glucose 108 mg/dl (74-100); Potassium 4.2 mmoL/L (3.5-5.1); Sodium 139 mmol/L (136-145); Total Protein,Serum 6.7 g/dl (6.3-8.2)
== END 2023-05-17 23:59 ==
LOC: LAB 14:36
PROVIDERS: PCP Family Medicine; Visit Provider Family Medicine
DX: D64.9 Anemia, unspecified (principal); R17 Unspecified jaundice
CPT/HCPCS: 36415; 80053; 85025

== ENCOUNTER 2023-06-09 16:16 | Outpatient (CLI) | payer BC, SELFPAY ==
[2023-06-09 16:33] LABS: Basophils # 0.1 K/mm3 (0-0.2); Eosinophils # 0.2 K/mm3 (0.0-0.4); Eosinophils % 2.5 % (0.1-12.0); Hematocrit 29.3 % (42.0-52.0); Hemoglobin 8.9 g/dL (14.1-18.0); Lymphocytes # 0.8 K/mm3 (0.7-4.5); Mean Corpuscular HGB Conc 30.4 g/dL (31.8-35.4); Mean Corpuscular Hemoglobin 24.7 pg (27.0-31.2); Mean Platelet Volume 9.9 fl (7.4-10.4); Monocytes # 0.5 K/mm3 (0.1-1.0); Neutrophils # 5.1 K/mm3 (1.8-7.8); Neutrophils % 76.5 % (37.0-80.0); Platelet Count 367 K/mm3 (142-424); Red Blood Count 3.61 M/mm3 (4.60-6.20); Red Cell Distribution Width 17.8 % (11.5-17.5); White Blood Count 6.7 K/mm3 (4.8-10.8)
[2023-06-09 17:02] LABS: Alanine Aminotransferase 18 U/L (12-78); Albumin Level 4.1 g/dl (3.5-5.0); Albumin/Globulin Ratio 1.4 (1.1-1.8); Alkaline Phosphatase 283 U/L (38-126); Aspartate Amino Transferase 31 U/L (17-59); Bilirubin,Total 1.4 mg/dl (0.2-1.3); Blood Urea Nitrogen 21 mg/dl (9-20); Calcium 9.2 mg/dl (8.4-10.2); Carbon Dioxide 26 mmol/L (22.0-30.0); Chloride 103 mmol/L (98-107); Estimated Glomerular Filt Rate 92 ml/min (>60); GFR (African American) 111 ML/MIN (>60); Glucose 124 mg/dl (74-100); Sodium 139 mmol/L (136-145); Total Protein,Serum 7.1 g/dl (6.3-8.2)
[2023-06-09 17:22] LABS: Iron 32 ug/dL (49-181)
[2023-06-09 17:32] LABS: Total Iron Binding Capacity 366 ug/dL (261-462)
[2023-06-09 17:59] LABS: Ferritin 23.2 ng/ml (17.9-464)
[2023-06-09 18:16] LABS: NT Pro Brain Natriuretic Pep. 1430 pg/mL (0-125)
== END 2023-06-09 23:59 | disposition home or self-care (01) ==
LOC: LAB 16:17
PROVIDERS: PCP Family Medicine; Visit Provider Family Medicine
DX: I48.91 Unspecified atrial fibrillation (principal); E87.70 Fluid overload, unspecified; D64.9 Anemia, unspecified
CPT/HCPCS: 36415; 80053; 82728; 83540; 83550; 83735; 83880; 85025

== ENCOUNTER 2023-07-20 17:24 | Outpatient (CLI) | payer BC, SELFPAY ==
[2023-07-20 18:47] LABS: Basophils # 0.1 K/mm3 (0-0.2); Basophils % 1.2 % (0.1-2.0); Eosinophils # 0.3 K/mm3 (0.0-0.4); Hematocrit 36.6 % (42.0-52.0); Hemoglobin 11.3 g/dL (14.1-18.0); Lymphocytes # 1.2 K/mm3 (0.7-4.5); Lymphocytes % 19.4 % (10-50); Mean Corpuscular HGB Conc 30.9 g/dL (31.8-35.4); Mean Corpuscular Hemoglobin 23.3 pg (27.0-31.2); Mean Corpuscular Volume 75.4 fl (80-94); Monocytes # 0.6 K/mm3 (0.1-1.0); Monocytes % 9.1 % (1.7-9.3); Neutrophils # 4.1 K/mm3 (1.8-7.8); Neutrophils % 65.4 % (37.0-80.0); Platelet Count 407 K/mm3 (142-424); Red Blood Count 4.85 M/mm3 (4.60-6.20); Red Cell Distribution Width 19.5 % (11.5-17.5); White Blood Count 6.3 K/mm3 (4.8-10.8)
[2023-07-20 19:39] LABS: Alanine Aminotransferase 39 U/L (12-78); Blood Urea Nitrogen 21 mg/dl (9-20); Creatine Kinase 75 U/L (55-170); Estimated Glomerular Filt Rate 92 ml/min (>60); GFR (African American) 111 ML/MIN (>60)
== END 2023-07-20 23:59 | disposition home or self-care (01) ==
LOC: LAB.DROPOF 17:27
PROVIDERS: PCP Family Medicine; Visit Provider Family Medicine
DX: I31.39 Other pericardial effusion (noninflammatory) (principal)
CPT/HCPCS: 82550; 82565; 84460; 84520; 85025

== ENCOUNTER 2023-08-05 13:57 | Outpatient (CLI) | payer BC, SELFPAY ==
[2023-08-05 14:15] LABS: Basophils # 0.1 K/mm3 (0-0.2); Basophils % 1.5 % (0.1-2.0); Eosinophils # 0.2 K/mm3 (0.0-0.4); Eosinophils % 4.3 % (0.1-12.0); Hematocrit 36.5 % (42.0-52.0); Hemoglobin 11.1 g/dL (14.1-18.0); Lymphocytes # 0.9 K/mm3 (0.7-4.5); Lymphocytes % 20.4 % (10-50); Mean Corpuscular HGB Conc 30.5 g/dL (31.8-35.4); Mean Corpuscular Hemoglobin 23.1 pg (27.0-31.2); Mean Corpuscular Volume 75.9 fl (80-94); Mean Platelet Volume 8.7 fl (7.4-10.4); Monocytes # 0.5 K/mm3 (0.1-1.0); Monocytes % 11.6 % (1.7-9.3); Neutrophils # 2.7 K/mm3 (1.8-7.8); Neutrophils % 62.3 % (37.0-80.0); Platelet Count 281 K/mm3 (142-424); Red Cell Distribution Width 20.3 % (11.5-17.5); White Blood Count 4.3 K/mm3 (4.8-10.8)
[2023-08-05 14:47] LABS: Alanine Aminotransferase 35 U/L (12-78); Albumin Level 3.9 g/dl (3.5-5.0); Albumin/Globulin Ratio 1.3 (1.1-1.8); Alkaline Phosphatase 199 U/L (38-126); Anion Gap 13.3 mEq/L (5-15); Aspartate Amino Transferase 45 U/L (17-59); Bilirubin,Total 0.6 mg/dl (0.2-1.3); Blood Urea Nitrogen 23 mg/dl (9-20); Calcium 9.5 mg/dl (8.4-10.2); Carbon Dioxide 27 mmol/L (22.0-30.0); Chloride 103 mmol/L (98-107); Estimated Glomerular Filt Rate 105 ml/min (>60); GFR (African American) 127 ML/MIN (>60); Globulin 2.9 g/dL (1.3-3.2); Glucose 105 mg/dl (74-100); Potassium 4.3 mmoL/L (3.5-5.1); Sodium 139 mmol/L (136-145); Total Protein,Serum 6.8 g/dl (6.3-8.2)
== END 2023-08-05 23:59 | disposition home or self-care (01) ==
LOC: LAB.DROPOF 13:59
PROVIDERS: PCP Family Medicine; Visit Provider Family Medicine
DX: I31.9 Disease of pericardium, unspecified (principal); I31.39 Other pericardial effusion (noninflammatory)
CPT/HCPCS: 80053; 85025